=== PATIENT | male | born 1955 | race Caucasian/White ===

== ENCOUNTER 2016-12-16 09:33 | Outpatient (CLI) | payer MEDICARE ==
--- NOTE | 2016-12-16 14:34 | CT ---
CT CHEST WITH IV CONTRAST: CT ABDOMEN AND PELVIS WITH IV AND ORAL CONTRAST: HISTORY: Abdominal pain. Decreased appetite. Chest pain. COMPARISON: 10/07/2015 FINDINGS: A small amount of left pleural fluid remains with atelectasis at the left lung base having increased since the prior study. Minimal right pleural fluid is also present. Focal areas of parenchymal opacity at the left lateral lung base and left anterior lung base are fav ored to represent atelectasis. There is prominent calcification throughout the arterial structures. Right upper extremity and superior vena cava stents are partially visualized. Heterogeneous density of the liver is favored to represent vascular timing of contrast. Calcified g ranulomata within the spleen are consistent with healed granulomatous disease. The cortex of each k idney is atrophied. There are degenerative changes of the lumbar spine. The urinary bladder is inc ompletely distended. Left-sided inferior vena cava is present, crossing the midline at the level of the left renal vein. There is no evidence of bowel obstruction. The urinary bladder is incomplete ly distended. Bilateral pars interarticularis defects are present at the lumbosacral junction, with grade 2 spondy lolisthesis on the lateral topogram. IMPRESSION: 1. Small bilateral pleural effusions. Cause is not evident. 2. Atherosclerosis. 3. Bilateral renal atrophy. 4. Bilateral spondylolysis with spondylolisthesis at the lumbosacral junction. POS: [facility]
[2016-12-16] MEDS ORDERED: Iopamidol 370 76% 100 ML VIAL ONE (16:00)
== END 2016-12-16 09:34 | disposition home or self-care (01) ==
LOC: CT 09:33
PROVIDERS: ATTEND Internal Medicine Nephrology
DX: R05 Cough (principal); R63.0 Anorexia; R63.5 Abnormal weight gain; J90 Pleural effusion, not elsewhere classified; I70.0 Atherosclerosis of aorta; N26.1 Atrophy of kidney (terminal); M47.896 Other spondylosis, lumbar region
CPT/HCPCS: 71260; 74177

== ENCOUNTER 2017-01-18 16:05 | Inpatient (IN) | payer MEDICARE ==
[2017-01-18 17:06] LABS: #Eosinphils 0.2 thou/uL (0.0-0.7); #Lymphocytes 0.7 thou/uL (1.20-3.40); #Monocytes 0.8 thou/uL (0.11-0.59); #Neutrophils 6.6 thou/uL (1.40-6.50); %Basophils 0.3 % (0.0-1.0); %Eosinophils 2.5 % (0.0-10.0); %Lymphocytes 8.9 % (21.0-51.0); Hematocrit 36.5 % (42.0-52.0); Red Blood Cell (RBC) Count 3.63 mill/uL (4.70-6.10); White Blood Cell (WBC) Count 8.3 thou/uL (4.8-10.8)
--- NOTE | 2017-01-18 17:07 | RAD ---
FRONTAL RADIOGRAPH CHEST Date: 01-18-17 Comparison: 06-01-16 History: Cough, shortness of breath. FINDINGS: Vascular stent material overlies the right axillary region and the region of the superior vena cava. There is atherosclerotic calcification in the aortic arch. Midline sternotomy wires are present. Ther e is mild blunting of the right costophrenic angle which may signify small volume right pleural fluid and/or pleural thickening. There is dense opacity in the left lung base with obscuration of the left hemidiaphragm and blunting of the left heart border with lateral pleural thickening involving the left lung base. This nonspecif ic pleural and parenchymal opacity within the left lung base has worsened since the prior exam. There is a pneumothorax on the left, within the left lung apex, the pleural margin projecting over th e region of the clavicular heads. IMPRESSION: 1. Small pneumothorax in the left lung apex. 2. Nonspecific pleural and parenchymal opacity within the left lung base. This could signify volume l oss associated with pleural fluid, infectious pneumonitis, and/or aspiration. 3. The left sided pneumothorax and left basilar pleural and parenchymal opacity related to Betsy whipple in the Emergency Room 4:40 p.m. 01-18-17. Code CR POS: [facility]
[2017-01-18 17:30] LABS: ALT (SGPT) 11 U/L (8-55); AST (SGOT) 13 U/L (5-34); Alkaline Phosphatase 130 U/L (40-150); Anion Gap 13 mmol/L (10-20); BUN (Urea Nitrogen) 39 mg/dL (8.4-25.7); Bilirubin, Total 0.8 mg/dL (0.2-1.2); CK (CPK) 37 U/L (30-200); Calc. Creatinine Clearance 0 mL/min (70-130); Calcium 9.9 mg/dL (7.8-10.44); Carbon Dioxide 32 mmol/L (23-31); Chloride 99 mmol/L (98-107); Estimated GFR-MDRD 13; Protein, Total 8.3 g/dL (5.8-8.1)
[2017-01-18 17:34] LABS: Troponin I 0.064 ng/mL (< 0.028)
[2017-01-18 22:13] LABS: Troponin I 0.056 ng/mL (< 0.028)
[2017-01-19 00:14] LABS: Oxyhemoglobin 95.9 % (94.0-97.0); Sodium 140 mmol/L (135-148)
[2017-01-19 00:16] LABS: Modified Allen's Test POSITIVE; Vent NO
[2017-01-19 00:17] LABS: Mode NASAL CANNULA
[2017-01-19] MEDS ORDERED: Acetaminophen/Codeine 30-300mg Tablet ONE (00:28)
[2017-01-19 01:08] LABS: PTT 48.5 SEC (22.9-36.1); Prothrombin Time 30.1 SEC (12.0-14.7)
[2017-01-19] MEDS ORDERED: Guaifenesin DM 100-10/5 ML UDCUP PO PRN (02:05)
[2017-01-19] MEDS ORDERED: HumaLOG 300 UNITS/3 ML VIAL SC PRN (02:05)
[2017-01-19] MEDS ORDERED: Dextrose 5% in Water 1,000 ML IV PRN (02:05)
[2017-01-19] MEDS ORDERED: Dextrose 50% Abboject 50 ML SYRINGE SLOW IVP PRN (02:05)
[2017-01-19] MEDS ORDERED: Ondansetron ODT 4 MG TAB PO PRN (02:05)
[2017-01-19 02:24] LABS: #Basophils 0.1 thou/uL (0.0-0.2); #Eosinphils 0.3 thou/uL (0.0-0.7); #Monocytes 0.8 thou/uL (0.11-0.59); #Neutrophils 6.4 thou/uL (1.40-6.50); %Basophils 0.7 % (0.0-1.0); %Lymphocytes 11.8 % (21.0-51.0); %Monocytes 9.6 % (0.0-10.0); Hematocrit 32.6 % (42.0-52.0); Mean Platelet Volume 6.1 fL (7.4-10.4); Red Blood Cell (RBC) Count 3.22 mill/uL (4.70-6.10); White Blood Cell (WBC) Count 8.5 thou/uL (4.8-10.8)
[2017-01-19] MEDS ORDERED: hydrOXYzine 25 MG TAB PO PRN (02:36)
[2017-01-19 02:41] VITALS: BMI 24.0
[2017-01-19 02:48] LABS: Troponin I 0.066 ng/mL (< 0.028)
[2017-01-19 02:53] LABS: Anion Gap 15 mmol/L (10-20); BUN (Urea Nitrogen) 51 mg/dL (8.4-25.7); Calc. Creatinine Clearance 14 mL/min (70-130); Calcium 9.2 mg/dL (7.8-10.44); Carbon Dioxide 29 mmol/L (23-31); Chloride 101 mmol/L (98-107); Estimated GFR-MDRD 11
[2017-01-19 08:04] LABS: Troponin I 0.063 ng/mL (< 0.028)
--- NOTE | 2017-01-19 08:34 | HP-2 ---
DATE OF ADMISSION: 01/19/2017 ADMITTING RESIDENT: Dr. Harvey Márquez. ADMITTING ATTENDING: Dr. Edmond Dawson. PRIMARY CARE PHYSICIAN: [facility]. GENERAL EDUCATION PROFESSOR: Dr. Urrutia. CODE STATUS: FULL. CHIEF COMPLAINT: Shortness of breath and chest pain. HISTORY OF PRESENT ILLNESS: This is a 61-year-old male with shortness of breath and pain to the left side. This started at 3:00 a.m. this morning. Pain feels like rabies on place and it hurts sometim es with deep breaths. Does not hurt with movement or palpation. Does not feel like other times that he has had cardiac pain. Now associated with sweating or exertion, it has not relieved with rest. He has not tried any medications for it. No fever or chills. He has been coughing for months, but j ust clear phlegm. No green or foul smelling phlegm. Patient also complains of a chronic issue of 80 pound weight loss, has weights to follow over what ti me period this happened. He says he has never had an EGD study. PAST MEDICAL HISTORY: Tachybrady syndrome, atrial fibrillation, diabetes, end-stage renal disease on dialysis, hypertension, hyperlipidemia, anemia of chronic disease, secondary hyperparathyroidism and history of coronary artery disease. PAST SURGICAL HISTORY: Includes: 1. A 3-vessel CABG in 2015. 2. Stent placed in 2010. 3. Atrial ablation in 2017 in [place], [place]. 4. Knee surgery. MEDICATIONS: Patient is unsure of all medications, but confirms the following from his last discharg e: 1. Tramadol 50 mg p.o. q.6 hours p.r.n. 2. Fish oil 1000 mg 1 tablet p.o. daily. 3. Vitamin D3 of 2000 units 1 tablet p.o. daily. 4. Renvela 3200 mg p.o. t.i.d. with meals. 5. Sensipar 30 mg 2 tablets p.o. daily. 6. Atorvastatin 10 mg p.o. at bedtime. 7. Lisinopril 2.5 mg daily. 8. Metoprolol 50 mg p.o. b.i.d. 9. Warfarin 5 mg tablet, take 1.5 to 2 tablets every other day. SOCIAL HISTORY: Patient use chewing tobacco. He goes through 1 can every 2 days, but denies alcohol or recreational drug use. Denies ever smoking tobacco. REVIEW OF SYSTEMS: Twelve point review of systems was done and was negative except for what is detai led above. PHYSICAL EXAMINATION: VITAL SIGNS: T-max 98.1, respiratory rate 30, heart rate 92, blood pressure 156/109, O2 sat 96% on r oom air. GENERAL: Patient alert and oriented x3 in no acute distress. HEENT: EOMI, PERRLA, nonicteric. ENT: Showed normal nasal mucosa and oropharynx. CARDIOVASCULAR: The patient had regular rate and rhythm without murmurs or rubs. Pulses were equal. RESPIRATORY: Clear to auscultation bilaterally. Her breath sounds in all quadrants listing in the f ront and back of the chest. No crackles appreciated in the bases. The patient was mildly tachypneic during my examination. ABDOMEN: Nontender, nondistended. No guarding or rebound. EXTREMITIES: No edema. Equal movements bilaterally. SKIN: No rash or ulcer, no palpable lesions. NEUROLOGIC: Cranial nerve exam normal. No focal deficits. PSYCHIATRIC: Mood and affect are appropriate. Judgment and insight are intact. LABORATORY DATA: White blood cell count 8.3, hemoglobin 11.5, hematocrit 36.5, platelets 274. Sodiu m 140, potassium 4.3, chloride 99, bicarbonate 32, BUN 39, creatinine 4.56, glucose 99, calcium 9.6, total protein 8.2, albumin 4.3, bilirubin 0.8, AST 13, ALT 11, alkaline phosphatase 130. Initial tro ponin 0.064. EKG showed normal sinus rhythm with right bundle branch block same from previous. Ches t x-ray showed a small left apical pneumothorax and opacity in the left lung base, likely atelectasis , but with chest x-ray, cannot rule out pneumonia. ASSESSMENT AND PLAN: 1. Left apical pneumothorax. The patient is hemodynamically stable. This was a spontaneous pneumot horax, likely from the patient's chronic cough, will workup chronic cough as below. Our plan is to m onitor on a telemetry bed and will consult CT surgery if patient worsens, but likely this will resolv e on its own, but does need inpatient monitoring. We will get a CT with contrast in the morning befo re dialysis, to better evaluate his chronic cough and the pneumothorax. 2. End-stage renal disease on hemodialysis. Consult Dr. Urrutia for continued dialysis in the hospit al. The patient does not appear fluid overloaded and has normal electrolytes at this moment. 3. Atrial fibrillation. The patient is status post ablation, was in sinus rhythm now. We will cont inue patient's warfarin on home regimen. 4. Anemia of chronic disease. We will monitor appears stable from previous admissions. 5. Elevated bicarbonate likely from a respiratory acidosis or metabolic alkalosis. We will get an A BG and investigate causes based on ABG. 6. Chronic cough for 1 month. We will hold lisinopril as this is possible cause based on length of time, lack of fever and chills, lack of white count and lack of productive cough. Pneumonia is low l ikelihood clinically, but will monitor for any of these signs to occur. 7. Deep thrombosis prophylaxis, SCDs. The patient will continue warfarin. 8. Patient reported weight loss with early satiety and recommend EGD outpatient.
--- NOTE | 2017-01-19 09:26 | PDOC.FM ---
- Subjective Subjective: CC: Improved chest pain HPI: states his chest pain has nearly resolved. States he has early satiety due to the smell of food and denies difficulty swallowing. - Objective MAR Reviewed: Yes Vital Signs & Weight: Vital Signs (12 hours) Temp Pulse Resp BP Pulse Ox 01/19/17 08:00 97.6 F 92 16 134/77 93 L 01/19/17 03:12 98.0 F 84 24 H 129/65 93 L I&O: 01/18/17 01/19/17 01/20/17 06:59 06:59 06:59 Intake Total 300 Balance 300 Result Diagrams: 01/19/17 02:14 01/19/17 02:14 EKG Reviewed by me: Yes (SR PVCs rate 90s wandering atrial pacemaker. ) <Chris Castillo - Last Filed: 01/19/17 10:53> - Objective Vital Signs & Weight: Vital Signs (12 hours) Temp Pulse Resp BP Pulse Ox 01/19/17 11:05 98.1 F 91 16 135/66 92 L 01/19/17 08:00 97.6 F 92 16 134/77 93 L 01/19/17 03:12 98.0 F 84 24 H 129/65 93 L I&O: 01/18/17 01/19/17 01/20/17 06:59 06:59 06:59 Intake Total 300 Balance 300 Result Diagrams: 01/19/17 02:14 01/19/17 02:14 <Neville Bartlett - Last Filed: 01/19/17 13:54> Phys Exam - Physical Examination Constitutional: NAD HEENT: moist MMs, sclera anicteric Respiratory: no wheezing, no rales, no rhonchi abscent breath sounds REGLA Cardiovascular: RRR, no significant murmur Musculoskeletal: no edema, pulses present Neurological: non-focal, moves all 4 limbs Psychiatric: normal affect, A&O x 3 <Chris Castillo - Last Filed: 01/19/17 10:53> Dx/Plan (1) Pneumothorax Code(s): J93.9 - PNEUMOTHORAX, UNSPECIFIED Status: Acute QualifierTitle: Pneumothorax type: spontaneous, primary Qualified Code(s) : J93.11 - Primary spontaneous pneumothorax Plan: Confirmed on XR - will monitor with repeat XR tomorrow to view progression. (2) Chronic cough Code(s): R05 - COUGH Status: Acute Plan: CT scan with contrast of chest ordered to further evaluate. will have to coordinate with HD. (3) ESRD (end stage renal disease) on dialysis Code(s): N18.6 - END STAGE RENAL DISEASE; Z99.2 - DEPENDENCE ON RENAL DIALYSIS Status: Chronic Plan: Dr. Urrutia contacted. (4) Hypertension, benign Code(s): I10 - ESSENTIAL (PRIMARY) HYPERTENSION Status: Chronic Plan: stable (5) Weight loss, abnormal Code(s): R63.4 - ABNORMAL WEIGHT LOSS Status: Acute Plan: complains of early satiety and epigastric fullness. Reports 60 lb weight loss - will add CT abdomen and pelvis to tomorrow's study for evaluation since patient not reliable to follow up outpatient. <Chris Castillo - Last Filed: 01/19/17 10:53> Attending Addendum - Attending Addendum I personally evaluated the patient and discussed the management with Dr. Castillo. I agree with the History, Examination, Assessment and Plan documented above with any addition or exceptions noted below. early satiety, food avulsion and 60lb weight loss is concerning for GI neoplasm. Epigastric and RUQ tenderness noted on exam. Will arrange for CT of belly as well as chest tomorrow in coordination of HD. <Neville Bartlett - Last Filed: 01/19/17 13:54>
[2017-01-19] MEDS: Metoprolol Tartrate 50 MG TAB PO SCH ×2 (10:55→19:48)
[2017-01-19] MEDS: Sod Chloride/Lan/MO/Peet,Wh (Lubriderm) Lotion 180 ml Bottle TOP SCH ×3 (13:13→19:49)
[2017-01-19] MEDS: Acetaminophen 325 MG TAB PO PRN ×2 (13:13→19:47)
[2017-01-19] MEDS: Benzonatate 100 MG CAP PO PRN (16:38)
[2017-01-19] MEDS ORDERED: Warfarin Sodium 5 MG TAB PO SCH (17:00)
[2017-01-19] MEDS ORDERED: Atorvastatin Calcium 20 MG TAB PO SCH (21:00)
[2017-01-20] MEDS: Acetaminophen 325 MG TAB PO PRN (03:29)
[2017-01-20 06:37] LABS: Hematocrit 38.5 % (42.0-52.0); Prothrombin Time 30.9 SEC (12.0-14.7)
--- NOTE | 2017-01-20 07:59 | EKG ---
Test Reason : STAT Blood Pressure : / mmHG Vent. Rate : 088 BPM Atrial Rate : 088 BPM P-R Int : 138 ms QRS Dur : 138 ms QT Int : 430 ms P-R-T Axes : 068 -17 015 degrees QTc Int : 520 ms Sinus rhythm with occasional , and consecutive Premature ventricular complexes Right bundle branch block Abnormal ECG When compared with ECG of 18-JAN-2017 16:14, (Unconfirmed) Premature ventricular complexes are now Present Confirmed by CHA VICKERS ([id number]) on 01/20/2017 7:58:35 AM Referred By: Confirmed By:CHA VICKERS
[2017-01-20] MEDS: Benzonatate 100 MG CAP PO PRN (09:37)
[2017-01-20] MEDS: Sod Chloride/Lan/MO/Peet,Wh (Lubriderm) Lotion 180 ml Bottle TOP SCH (09:37)
[2017-01-20] MEDS: Metoprolol Tartrate 50 MG TAB PO SCH (09:37)
--- NOTE | 2017-01-20 09:54 | CT ---
CONTRAST ENHANCED CT OF THE CHEST CONTRAST ENHANCED CT OF THE ABDOMEN AND PELVIS: History: 61-year-old male with history of productive cough, chest pain, left lower quadrant abdominal pain. Technique: Contrast enhanced CT images of the chest, abdomen, and pelvis obtained after administratio n of IV and oral contrast. Comparison: 12-16-16 FINDINGS: Again, coronary artery calcifications are seen. Bilateral pleural effusions are seen. There is a righ t upper extremity subclavian venous endovascular stent in place. The lung parenchyma demonstrates no significant evidence of masses. There appears to be a loculated small pneumothorax just medial to the left upper lobe, not present on the previous comparison CT. No significant evidence of mediastinal, hilar, or axillary lymphadenopathy seen. CT abdomen and pelvis demonstrates calcifications in the spleen. The liver is unremarkable. Bilateral renal parenchymal calcifications and atrophy is seen. There is a left sided inferior vena cava dista l to the renal veins. A small amount of fluid is seen in the right lower quadrant of the abdomen which was not present on t he previous exam. In addition, abnormal small bowel dilatation has developed in the distal small negin l. IMPRESSION: 1. Developed small amount of free pelvic fluid. 2. Dilated developed loops of distal small bowel. 3. Increasing bilateral pleural effusions. 4. Coronary artery calcifications. 5. Loculated left upper medial small pneumothorax. POS: [facility]
--- NOTE | 2017-01-20 09:54 | RAD ---
PA AND LATERAL VIEWS CHEST: HISTORY: Pneumothorax followup. FINDINGS: Comparison is made with the exam of 01/18/17. Small left apical pneumothorax is stable. Changes of median sternotomy are again seen. The heart size is stable. There are pleural and parenc hymal changes of the left lung base. There is mild pulmonary vascular congestion. Right-sided vascu lar stents are again noted. IMPRESSION: Stable small left apical pneumothorax. POS: [facility]
--- NOTE | 2017-01-20 10:07 | PDOC.FM ---
- Subjective Subjective: CC: Feeling better HPI: States his breathing has improved. Was completing oral contrast at time of exam. No other concerns. resting comfortably in bed. - Objective MAR Reviewed: Yes Vital Signs & Weight: Vital Signs (12 hours) Temp Pulse Resp BP Pulse Ox 01/20/17 07:51 98.5 F 56 L 20 01/20/17 07:35 97.4 F L 64 20 122/65 96 01/20/17 03:29 98.5 F 56 L 20 115/56 L 97 01/19/17 23:14 97.4 F L 65 16 111/58 L 100 Weight Weight 71.532 kg I&O: 01/19/17 01/20/17 01/21/17 06:59 06:59 06:59 Intake Total 300 560 250 Balance 300 560 250 Result Diagrams: 01/20/17 05:53 01/19/17 02:14 EKG Reviewed by me: Yes (SR 50s ) <Chris Castillo - Last Filed: 01/20/17 10:05> - Objective Vital Signs & Weight: Vital Signs (12 hours) Temp Pulse Resp BP Pulse Ox 01/20/17 11:20 97.3 F L 72 16 126/68 95 01/20/17 07:51 98.5 F 56 L 20 01/20/17 07:35 97.4 F L 64 20 122/65 96 Weight Weight 71.532 kg I&O: 01/19/17 01/20/17 01/21/17 06:59 06:59 06:59 Intake Total 300 560 500 Balance 300 560 500 Result Diagrams: 01/20/17 05:53 01/19/17 02:14 <Neville Bartlett - Last Filed: 01/20/17 17:15> Phys Exam - Physical Examination HEENT: moist MMs, sclera anicteric Respiratory: no wheezing, no rales, clear to auscultation bilateral improved air movement in REGLA Cardiovascular: RRR, no significant murmur Gastrointestinal: soft, non-tender Musculoskeletal: no edema Neurological: non-focal, moves all 4 limbs Psychiatric: normal affect, A&O x 3 <Chris Castillo - Last Filed: 01/20/17 10:05> Dx/Plan (1) Pneumothorax Code(s): J93.9 - PNEUMOTHORAX, UNSPECIFIED Status: Acute QualifierTitle: Pneumothorax type: spontaneous, primary Qualified Code(s) : J93.11 - Primary spontaneous pneumothorax Plan: Stable CXR. Small loculated Pneumothorax on CT. Plan for D/C following HD today. (2) Chronic cough Code(s): R05 - COUGH Status: Acute Plan: CT scan unremarkable except for Pneumothorax and pleural effusions. - likely due to viral URI. (3) ESRD (end stage renal disease) on dialysis Code(s): N18.6 - END STAGE RENAL DISEASE; Z99.2 - DEPENDENCE ON RENAL DIALYSIS Status: Chronic Plan: Dr. Urrutia contacted. - Receiving HD today then plan for D/C. (4) Hypertension, benign Code(s): I10 - ESSENTIAL (PRIMARY) HYPERTENSION Status: Chronic Plan: stable (5) Weight loss, abnormal Code(s): R63.4 - ABNORMAL WEIGHT LOSS Status: Acute Plan: complains of early satiety and epigastric fullness. Reports 60 lb weight loss -CT abdomen and pelvis shows no mass. <Chris Castillo - Last Filed: 01/20/17 10:05> Attending Addendum - Attending Addendum I personally evaluated the patient and discussed the management with Dr. Castillo. I agree with the History, Examination, Assessment and Plan documented above with any addition or exceptions noted below. Patient is doing well. CT scan of chest abd and pelvis are unremarkable except fro stable pneumothorax. Vitals are stable. Possible Discharge. <Neville Bartlett - Last Filed: 01/20/17 17:15>
[2017-01-20] MEDS ORDERED: traMADol HCl 50 MG TAB PO SCH (12:00)
[2017-01-20 12:18] VITALS: BP 126/68; TEMP 97.3
--- NOTE | 2017-01-21 06:28 | DIS-2 ---
DATE OF ADMISSION: 01/19/2017 DATE OF DISCHARGE: 01/20/2017 ADMITTING ATTENDING: Edmond Dawson MD DISCHARGE ATTENDING: Neville Bartlett MD ADMITTING RESIDENT: Harvey Márquez MD DISCHARGE RESIDENT: Chris Castillo MD CONSULTATIONS: None. PROCEDURES: 1. Routine hemodialysis on 01/20/2017. 2. Chest x-ray on 01/18/2017 showed small pneumothorax in the left lung apex, nonspecific pleural pa renchymal opacity within left lung base. 3. Chest x-ray on 01/20/2017, stable left apical pneumothorax. 4. CT of chest, abdomen, and pelvis, small amount of free-pelvic fluid, dilated developed loops of d istal small bowel, increasing bilateral pleural effusions, coronary artery calcifications, loculated left upper mediastinal, small pneumothorax. PERTINENT LABORATORY FINDINGS: None. PRIMARY DIAGNOSES: 1. Small spontaneous left pneumothorax. 2. Interval worsening of pleural effusions. SECONDARY DIAGNOSES: 1. Chronic cough. 2. End-stage renal disease, on hemodialysis. 3. Hypertension. 4. Unprovoked weight loss. DISCHARGE MEDICATIONS: 1. Tessalon 100 mg t.i.d. p.r.n. 2. Guaifenesin 15 mL q.4 hours p.r.n. 3. Lubriderm lotion 3 mL b.i.d. 4. Tramadol 50 mg daily, prescribed 15 tabs. 5. Fish oil 1 tab daily. 6. Vitamin D3 one tab daily. 7. Renvela 3200 mg t.i.d. 8. Cinacalcet 2 tabs daily. 9. Lipitor 20 mg daily. 10. Lisinopril 2.5 mg daily. 11. Metoprolol 50 mg 2 times daily. 12. Coumadin 5 mg at bedtime. DISCONTINUED MEDICATIONS: None. HISTORY OF PRESENT ILLNESS AND HOSPITAL COURSE: Mr. Raygoza is a pleasant 61-year-old mal e who presented to the ER with chest pain that began at approximately 0300 hours on the date of admis melina. States, pain had not been relieved with rest and did not try any medication for pain relief. Denies fever or chills. Endorses a cough for approximately 1 month, but denied increased sputum prod uction. The patient also reported 80-pound weight loss over the past several months. Stated, he had not been evaluated outpatient. On routine chest x-ray, a small left apical pneumothorax was discove red and the patient was admitted for observation. His vital signs were stable at all times. He show ed no signs of tension pneumothorax. Repeat chest x-ray on day of discharge showed stable pneumothor ax. He also had a CT of the chest, abdomen, and pelvis to evaluate for malignancy. When compared to CT scan on 12/16/2016, study showed new pneumothorax that has been identified on chest x-ray, worsen ing bilateral pleural effusions, and a small amount of free fluid in the pelvis. There was no sign o f malignancy identified. The CT scan was coordinated with his hemodialysis since IV contrast was uti lized. The patient receives hemodialysis on the afternoon of discharge and was sent home in stable c ondition. Vital signs at the time of discharge were stable. DISPOSITION: Discharged home in stable condition. This current pneumothorax will likely resolve spo ntaneously and is most likely secondary to his chronic cough that is believed to be caused by a viral upper respiratory infection. DISCHARGE INSTRUCTIONS: 1. Location: Home. 2. Diet: Coumadin, prudent, renal. 3. Activity: As tolerated. 4. Patient was instructed to follow up at [facility] within 1 week of discharge for repeat chest x-ray to monitor a progression of his pneumothorax. The clinical patient care provider at the [facility] was contacted to make the arrangements with the patient. 5. Less than 30 minutes was spent on discharge.
== END 2017-01-20 18:11 | disposition home or self-care (01) | DRG 199 ==
LOC: ERS 16:05 → 2SW 01-19 02:10
PROVIDERS: ADMIT Family Medicine; ATTEND Family Medicine
PROC: 5A1D70Z Performance of Urinary Filtration, Intermittent, Less than 6 Hours Per Day (ICD-10-PCS; principal; 2017-01-20)
DX: J93.11 Primary spontaneous pneumothorax (principal); N18.6 End stage renal disease; E11.22 Type 2 diabetes mellitus with diabetic chronic kidney disease; I12.0 Hypertensive chronic kidney disease with stage 5 chronic kidney disease or end stage renal disease; J90 Pleural effusion, not elsewhere classified; I48.0 Paroxysmal atrial fibrillation; N25.81 Secondary hyperparathyroidism of renal origin; J06.9 Acute upper respiratory infection, unspecified; R05 Cough; E87.8 Other disorders of electrolyte and fluid balance, not elsewhere classified; Z99.2 Dependence on renal dialysis; R63.4 Abnormal weight loss; D63.8 Anemia in other chronic diseases classified elsewhere; R68.81 Early satiety; Z68.24 Body mass index [BMI] 24.0-24.9, adult; E78.5 Hyperlipidemia, unspecified; I25.10 Atherosclerotic heart disease of native coronary artery without angina pectoris; Z95.1 Presence of aortocoronary bypass graft; Z95.5 Presence of coronary angioplasty implant and graft; F17.220 Nicotine dependence, chewing tobacco, uncomplicated; Z79.01 Long term (current) use of anticoagulants
CPT/HCPCS: 36415; 36416; 71010; 71020; 71260; 74177; 80048; 80053; 82553; 82805; 84484; 85014; 85018; 85025; 85049; 85610; 85730; 87340; 93005; 93010; 99406

== ENCOUNTER 2017-01-25 11:05 | Inpatient (IN) | payer MEDICARE ==
[2017-01-25 12:11] LABS: ALT (SGPT) 752 U/L (8-55); AST (SGOT) 592 U/L (5-34); Alkaline Phosphatase 196 U/L (40-150); Anion Gap 25 mmol/L (10-20); BUN (Urea Nitrogen) 96 mg/dL (8.4-25.7); Bilirubin, Total 1.3 mg/dL (0.2-1.2); Calc. Creatinine Clearance 0 mL/min (70-130); Calcium 9.1 mg/dL (7.8-10.44); Carbon Dioxide 22 mmol/L (23-31); Chloride 96 mmol/L (98-107); Estimated GFR-MDRD 6; Globulin 4.1 g/dL (2.4-3.5)
[2017-01-25 12:18] LABS: Band 3 % (5-11); Hematocrit 44.7 % (42.0-52.0); Mean Platelet Volume 7.6 fL (7.4-10.4); Neutrophil 75 % (42-75); White Blood Cell (WBC) Count 18.2 thou/uL (4.8-10.8)
[2017-01-25 13:04] LABS: Lactic Acid - Sepsis 5.1 mmol/L (0.5-2.2)
[2017-01-25 13:06] LABS: CK (CPK) 161 U/L (30-200); Lipase 27 U/L (8-78)
[2017-01-25 13:11] LABS: Troponin I 0.042 ng/mL (< 0.028)
--- NOTE | 2017-01-25 13:45 | RAD ---
PORTABLE UPRIGHT FRONTAL CHEST RADIOGRAPH: DATE: . COMPARISON: 01/18/17. HISTORY: A 61-year-old male who feels bad and does not want to attend a dialysis session. FINDINGS: The pneumothorax present on the 01/18/17 examination on the left has resolved. No pneumothorax is see n on either side. Vascular stent material overlies the right lung base in the right axillary region, stable. Stable midline sternotomy wires are present. There is dense pleural and parenchymal opacity within the left lung base, nonspecific and grossly unc hanged when compared to 01/18/17 exam. The right lung appears grossly unremarkable and stable. IMPRESSION: Dense nonspecific pleural and parenchymal opacity persists within the left lung base. The left-sided pneumothorax present on the prior examination has resolved. POS: [facility]
[2017-01-25] MEDS ORDERED: Guaifenesin DM 100-10/5 ML UDCUP PO PRN (18:40)
[2017-01-25] MEDS ORDERED: HumaLOG 300 UNITS/3 ML VIAL SC PRN (18:40)
[2017-01-25] MEDS ORDERED: Dextrose 5% in Water 1,000 ML IV PRN (18:40)
[2017-01-25] MEDS ORDERED: Benzonatate 100 MG CAP PO PRN (18:40)
[2017-01-25] MEDS ORDERED: Dextrose 50% Abboject 50 ML SYRINGE SLOW IVP PRN (18:40)
[2017-01-25] MEDS: traMADol HCl 50 MG TAB PO SCH (20:51)
[2017-01-25] MEDS: Hydrocerin (Eucerin) Cream 120 gm Jar TOP SCH (20:52)
[2017-01-25] MEDS: Metoprolol Tartrate 50 MG TAB PO SCH (20:52)
[2017-01-25 20:55] VITALS: BMI 22.4
[2017-01-25] MEDS ORDERED: Sod Chloride/Lan/MO/Peet,Wh (Lubriderm) Lotion 180 ml Bottle TOP SCH (21:00)
[2017-01-25] MEDS ORDERED: Atorvastatin Calcium 20 MG TAB PO SCH (21:00)
--- NOTE | 2017-01-25 21:22 | PDOC.EVN ---
Event Note - Event Note Event Note: Patient seen and examined while in dialysis. Case discussed with Dr. Bright and her H&P reviewed and repeated by me. Agree with A/P as documented. Patient is well known to our service with last admission last week for spontaneous pneumothorax. He presents today for generalized weakness and missed dialysis. Review of labs showed K of 7 but no EKG changes. VSS CV- normal s1/s2 Lungs- ctab Abd- soft, nt/nd, no hsm Ext- no c/c/e Labs reviewed. 1. Hyperkalemia 2. ESRD 3. Transaminitis- unknown cause. Differential is hepatic congestion, hepatitis , hepatocellular carcinoma. 4. Leukocytosis- no obvious source of infection 5. Systolic CHF, chronic- elevation of BNP (most likely secondary to missed dialysis) Emergent dialysis. trend electrolytes, LFTs, WBC count. Check hepatitis panel and RUQ u/s.
[2017-01-26 05:10] LABS: ALT (SGPT) 576 U/L (8-55); AST (SGOT) 342 U/L (5-34); Alkaline Phosphatase 163 U/L (40-150); Anion Gap 18 mmol/L (10-20); BUN (Urea Nitrogen) 46 mg/dL (8.4-25.7); Bilirubin, Total 1.1 mg/dL (0.2-1.2); Calc. Creatinine Clearance 13 mL/min (70-130); Calcium 8.3 mg/dL (7.8-10.44); Carbon Dioxide 27 mmol/L (23-31); Chloride 96 mmol/L (98-107); Estimated GFR-MDRD 10; Globulin 3.6 g/dL (2.4-3.5); Protein, Total 6.8 g/dL (5.8-8.1)
[2017-01-26 05:46] LABS: Anisocytosis SLIGHT = 6-15 cells (100X) (0-5/hpf); Band 3 % (5-11); Hematocrit 40.1 % (42.0-52.0); Mean Platelet Volume 7.2 fL (7.4-10.4); Neutrophil 86 % (42-75); Nucleated RBC 12 % (0); Polychromasia SLIGHT = 2-3 cells (100X) (0-2/hpf); Red Blood Cell (RBC) Count 3.99 mill/uL (4.70-6.10); White Blood Cell (WBC) Count 10.8 thou/uL (4.8-10.8)
--- NOTE | 2017-01-26 06:06 | HP-2 ---
CODE STATUS: FULL. PRIMARY CARE PHYSICIAN: [facility] ATTENDING PHYSICIAN: Adele Pyle MD RESIDENT: Fadumo Bright DO CHIEF COMPLAINT: Generalized weakness. HISTORY OF PRESENT ILLNESS: This is a 61-year-old male with past medical history of end-stage renal disease on hemodialysis, hypertension, coronary artery disease, who presents with generalized weakness for approximately 3 days. He was recently admitted to our service for a spontaneous pneumothorax which has since resolved. The patient also endorses an 80 pound weight loss over the last several months. Associated symptoms include nausea, vomiting, and early satiety. The patient has had nonbilious, nonbloody emesis on several occasions over the past 3 days. The patient attends dialysis Wednesday, Wednesday , and Wednesday, and states that he missed dialysis today due to weakness. He felt that he did not have energy to get off the couch. The patient denies fever , chills, diarrhea, constipation, abdominal pain, dysuria, new lesions. The patient does endorse a cough, which has become more productive of green sputum over the past several days. He also has some shortness of breath particularly with exertion. In the emergency department, patient was found to have a BNP greater than 10,000 and potassium of 7.0. Dr. Urrutia, his fashion patternmaker was consulted in the emergency department and he recommended emergent dialysis. An EKG was performed, at that time it did not show any T-wave changes. PAST MEDICAL HISTORY: 1. End-stage renal disease on hemodialysis. 2. Hypertension. 3. Hyperlipidemia. 4. Anemia of chronic disease. 5. Secondary hyperparathyroidism. 6. Coronary artery disease. 7. Tachybrady syndrome. 8. Atrial fibrillation. 9. Systolic congestive heart failure with an ejection fraction of 40% to 45% in 02/2016. 10. Diabetes mellitus type 2. PAST SURGICAL HISTORY: 1. Three-vessel CABG in 2015. 2. Stent in 2010. 3. Atrial ablation in 2016. 4. Knee surgery. ALLERGIES: PENICILLIN. MEDICATIONS: 1. Coumadin 5 mg at bedtime. 2. Metoprolol 50 mg b.i.d. 3. Lisinopril 2.5 mg daily. 4. Lipitor 20 mg daily. 5. Cinacalcet 2 tabs daily. 6. Renvela 3200 mg t.i.d. 7. Vitamin D3 daily. 8. Fish oil daily. 9. Tramadol 50 mg daily p.r.n. 10. Lubriderm lotion 3 mL b.i.d. 11. Guaifenesin 15 mL q.4 hours p.r.n. 12. Tessalon Perles 100 mg t.i.d. FAMILY HISTORY: Noncontributory. SOCIAL HISTORY: The patient endorses chewing tobacco one can every 2 days; however, in the past week he has only been through about a can. He denies any alcohol or drug use. REVIEW OF SYSTEMS: A 12-point review of systems was performed and all were negative except as listed in the HPI. PHYSICAL EXAMINATION: VITAL SIGNS: Blood pressure 125/92, pulse 48, respiratory rate 18, T-max 97.7, pulse ox 97% on room air, current weight 72.6 kilograms. GENERAL: Alert and oriented x3, in no acute distress. Well-developed, thin, and appropriately interactive. The patient did appear to be very fatigued and he was receiving his dialysis during interview. Eyes: Pupils equal, round, reactive to light and accommodation. Extraocular muscles are intact. ENT: Nasal mucosa within normal limits. NECK: Supple, without any lymphadenopathy or thyromegaly. CARDIOVASCULAR: The patient was bradycardic. No murmurs were detected. No gallops. Radial and pedal pulses 2+. RESPIRATORY: Normal respiratory effort, no retractions. There were some rhonchi anteriorly on the right side and decreased breath sounds anteriorly on the left side. SKIN: Warm and dry without cyanosis or lesions. ABDOMEN: Soft, nontender to palpation. Bowel sounds positive in all 4 quadrants. EXTREMITIES: No clubbing, cyanosis, or edema. MUSCULOSKELETAL: Structure within normal limits. NEUROLOGIC: No focal deficits. GCS 15. PSYCHIATRIC: Appropriate. LABORATORY AND DIAGNOSTIC DATA: 1. CBC revealed white blood cell count 18.2, hemoglobin 14.3, hematocrit 44.7, platelets 165. 2. CMP revealed sodium 136, potassium 7.0, chloride 96, bicarbonate 22, BUN 96 , creatinine 9.05, glucose 76, calcium 9.1, total protein 8.0, albumin 3.9, total bilirubin 0.3, AST 592, ALT 752, and alkaline phosphatase 196. 3. CK 161. 4. CK-MB 3.1, troponin 0.042. 5. Lipase 27. 6. BNP 10,093. 7. Flu A and B negative. 8. Chest x-ray showed dense nonspecific pleural and parenchymal opacity persistent left lung base. ASSESSMENT AND PLAN: This is a 61-year-old male with a past medical history of end-stage renal disease on hemodialysis who presented with generalized weakness for the past 3 days. 1. Severe hyperkalemia. Patient was admitted to telemetry. Dr. Urrutia was consulted in the emergency department and patient was sent for emergent dialysis. Dr. Urrutia, the patient's fashion patternmaker ordered for repeat potassium. EKG was normal with no peaked T waves. 2. Hypervolemia secondary to end-stage renal disease. Dr. Urrutia, patient's fashion patternmaker was consulted in the emergency department. The patient went for emergent dialysis. Patient will be started on high protein, renal diet, as well as consistent carb diet. Fluids are being monitored and patient will have daily weights. Continue MWF dialysis. 3. Elevated LFT's. LFT's higher than in the past. Differentials include hepatic congestion vs. HCC. vs. hepatitis. RUQ ultrasound to evaluate liver. Trend liver enzymes. 4. Systolic congestive heart failure with ejection fraction of 40% to 45%. The patient was placed on fluid restriction. Obtain daily weights. We will repeat BNP in the morning and perform strict I's and O's to monitor fluid status. Last echo was done in 02/2016. 5. Hypertension. Continue home medications. 6. Atrial fibrillation, currently in sinus rhythm. Continue rate control medications and Coumadin. 7. Diabetes mellitus type 2. The patient was placed on moderate sliding scale insulin with hypoglycemia protocol. DISPOSITION AND LENGTH OF HOSPITAL STAY: Two days. Symptomatic medication will be provided. History and physical as well as management discussed with Dr. Adele Pyle. [facility]ENTER[facility]
--- NOTE | 2017-01-26 06:22 | PDOC.FM ---
- Subjective Subjective: Patient doing well this AM. No significant overnight events. Upon entering the room this AM, patient was attempting to order breakfast. His appetite has returned. He denies N/V, diarrhea, chest pain or shortness of breath. His weakness has improved. - Objective MAR Reviewed: Yes Vital Signs & Weight: Vital Signs (12 hours) Temp Pulse Resp BP BP BP Pulse Ox 01/26/17 02:56 98.2 F 52 L 16 101/58 L 94 L 01/26/17 00:36 50 L 102/52 L 01/26/17 00:08 97.3 F L 47 L 20 89/57 L 95 01/25/17 21:15 97.7 F 64 19 01/25/17 19:19 97.7 F 64 19 155/72 H 100 01/25/17 18:45 97.5 F L 66 16 164/78 H 100 Weight Weight 68.719 kg Result Diagrams: 01/26/17 04:23 01/26/17 04:23 EKG Reviewed by me: Yes Radiology Reviewed by me: Yes Phys Exam - Physical Examination Constitutional: NAD HEENT: moist MMs, sclera anicteric Neck: supple Respiratory: no wheezing, no rales, no rhonchi Decreased breath sounds on left anterior chest compared to right Cardiovascular: RRR systolic murmur Gastrointestinal: soft, non-tender, no distention, positive bowel sounds Musculoskeletal: no edema, pulses present Neurological: non-focal, moves all 4 limbs Psychiatric: normal affect, A&O x 3 Skin: no rash, cap refill <2 seconds Dx/Plan (1) Hyperkalemia Code(s): E87.5 - HYPERKALEMIA Status: Acute (2) ESRD (end stage renal disease) on dialysis Code(s): N18.6 - END STAGE RENAL DISEASE; Z99.2 - DEPENDENCE ON RENAL DIALYSIS Status: Chronic (3) Elevated LFTs Code(s): R94.5 - ABNORMAL RESULTS OF LIVER FUNCTION STUDIES Status: Acute (4) Systolic CHF Code(s): I50.20 - UNSPECIFIED SYSTOLIC (CONGESTIVE) HEART FAILURE Status: Chronic Qualifiers: Congestive heart failure chronicity: chronic Qualified Code(s): I50.22 - Chronic systolic (congestive) heart failure (5) Hyperlipidemia Code(s): E78.5 - HYPERLIPIDEMIA, UNSPECIFIED Status: Chronic Qualifiers: Hyperlipidemia type: unspecified Qualified Code(s): E78.5 - Hyperlipidemia , unspecified (6) Sinus bradycardia on ECG Code(s): R00.1 - BRADYCARDIA, UNSPECIFIED Status: Acute (7) Weight loss, abnormal Code(s): R63.4 - ABNORMAL WEIGHT LOSS Status: Acute (8) Anemia of renal disease Code(s): D63.1 - ANEMIA IN CHRONIC KIDNEY DISEASE Status: Chronic (9) Diabetes mellitus Code(s): E11.9 - TYPE 2 DIABETES MELLITUS WITHOUT COMPLICATIONS Status: Chronic Qualifiers: Diabetes mellitus type: type 2 Diabetes mellitus complication status: with kidney complications Diabetes mellitus complication detail: with chronic kidney disease Chronic kidney disease stage: on chronic dialysis (10) Hypertension, benign Code(s): I10 - ESSENTIAL (PRIMARY) HYPERTENSION Status: Chronic (11) Secondary hyperparathyroidism of renal origin Code(s): N25.81 - SECONDARY HYPERPARATHYROIDISM OF RENAL ORIGIN Status: Chronic - Plan Plan: Plan: Severe hyperkalemia: - Admitted to telemetry - Patient missed morning dialysis - EKG did not show any peaked T waves - Sent from ED to dialysis; emergent - Dr. Urrutia consulted (nephrology); appreciate recs - Recheck potassium post dialysis; 3.6 Hypervolemia 2/2 ESRD on HD: - Missed Wednesday morning dialysis session due to weakness - BNP >10,000 - K 7.0 - Sent for emergent dialysis - Dr. Urrutia consulted; appreciate recs - Continue dialysis MWF Elevated LFT's: - Higher than in the past - Differentials include hepatitis vs. HCC vs. hepatic congestion; most likely hepatic congestion - Read of RUQ U/S pending - Hepatitis A antibodies pending - Recent Hep B and Hep C panels; Hep C Ab's present with no RNA - LFT's downtrended from yesterday sCHF with EF of 40-45%: - BNP >10,000 - Last echo in 02/2016 - Fluid restrict - Daily weights - Strict I&O's Atrial fibrillation: - Rate controlled - In sinus rhythm - Continue coumadin DM type II: - Mild SSI - ACHS accuchecks ACD: - stable HTN: - Continue home meds - Continue MWF dialysis HLD: - Continue home meds
--- NOTE | 2017-01-26 08:08 | ULT ---
GALLBLADDER ULTRASOUND: History: Elevated LFTs. Unintentional weight loss. Comparison: None. Technique: Utilizing a multihertz transducer, sonographic imaging of the abdomen was performed in a l ongitudinal and transverse plane. FINDINGS: The head and proximal pancreatic body have a normal echotexture. The remainder of the pancreas is obs cured by bowel gas. Hepatic parenchyma has a normal echotexture. No hepatic masses or intrahepatic biliary dilatation. Co ntour of the hepatic margin maintained. Right hepatic lobe measures 15.1 cm. The main portal vein is patent with to and fro flow. There is no sonographic evidence of cholelithiasis, gallbladder wall thickening or pericholecystic fl uid. No Yanez's sign. There is atrophy of the right renal parenchyma. Multiple anechoic foci are compatible with cysts are noted. The largest cyst measures 2.1 x 2.1 x 1.8 cm. No hydronephrosis. Common bile duct diameter is 0.4 cm. IMPRESSION: 1. To and fro flow into the main portal vein, correlate for right heart failure. 2. No sonographic evidence of cholelithiasis or cholecystitis. 3. Atrophy and cystic change of the right kidney. No hydronephrosis. POS: [facility]
[2017-01-26] MEDS ORDERED: Fish Oil 1,000 MG CAP PO SCH (09:00)
[2017-01-26] MEDS ORDERED: Cinacalcet HCl 30 MG TAB PO SCH (09:00)
[2017-01-26] MEDS ORDERED: Lisinopril 2.5 MG TAB PO SCH (09:00)
[2017-01-26 10:19] LABS: Hemoglobin A1c 4.7 % (4.0-6.0)
[2017-01-26] MEDS: Sevelamer Carbonate 800 MG TAB PO SCH ×2 (10:48→13:02)
[2017-01-26] MEDS: Metoprolol Tartrate 50 MG TAB PO SCH (10:49)
[2017-01-26] MEDS: traMADol HCl 50 MG TAB PO SCH (10:50)
[2017-01-26] MEDS: Hydrocerin (Eucerin) Cream 120 gm Jar TOP SCH (10:51)
[2017-01-26 11:57] VITALS: TEMP 97.8
--- NOTE | 2017-01-26 13:31 | ADD-PRG ---
DATE OF SERVICE: 01/26/2017 This is an addendum to the note of Dr. Fadumo Bright. Mr. Raygoza is a 61-year-old white male patient who has end-stage renal disease. He was admitted wi th generalized weakness. Of note is the fact that according to him, he has lost approximately 70-80 pounds in the last 4 months. He states his appetite has been poor. He was just in the hospital last week and at that time had a CT of the chest, abdomen, and pelvis, none of which revealed any evidenc e of malignancy or other significant abnormality. He does seem to have a persistent scar or infiltr ate in the left lower lobe of his lung on chest x-ray, but this was not further delineated on CT of t he chest. In the event we can likely continue to work up for his weight loss as an outpatient. I wo uld suggest we go ahead and draw a PSA, TSH, sed rate, CRP, and complete evaluation as an outpatient.
[2017-01-26 15:09] VITALS: BP 109/58
[2017-01-26] MEDS ORDERED: Warfarin Sodium 5 MG TAB PO SCH (17:00)
[2017-01-27 08:21] LABS: % Free PSA 26.7 % (.); Free PSA 0.16 ng/mL; Total PSA 0.6 ng/mL (0.0-4.0)
--- NOTE | 2017-01-28 07:40 | DIS-2 ---
DATE OF ADMISSION: 01/25/2017 DATE OF DISCHARGE: 01/26/2017 RESIDENT: Dr. Fadumo Bright. ADMITTING ATTENDING: Dr. Adele Pyle. DISCHARGE ATTENDING: Dr. Romel Finnegan. CONSULTATION: Nephrology, Dr. Urrutia. PROCEDURES: 1. Chest x-ray, dense nonspecific pleural and parenchymal opacities that persist within the left lung base. The left-sided pneumothorax was present on prior examination has resolved. 2. Abdominal ultrasound shows to and fro flow into the main portal vein, which correlates with right heart failure. There is no sonographic evidence of cholelithiasis or cholecystitis. Atrophy and cystic changes, right kidney, without hydronephrosis. PRIMARY DIAGNOSES: 1. Hyperkalemia secondary to end-stage renal disease. 2. Hypervolemia secondary to end-stage renal disease. 3. End-stage renal disease on hemodialysis. 4. Elevated liver function tests. SECONDARY DIAGNOSES: 1. Systolic congestive heart failure. 2. Hyperlipidemia. 3. Sinus bradycardia. 4. Unexplained weight loss. 5. Anemia of renal disease. 6. Diabetes mellitus, type 2. 7. Hypertension. 8. Secondary hyperparathyroidism of renal origin. DISCHARGE MEDICATIONS: 1. Fish oil 1 tablet oral daily. 2. Vitamin D3 one tablet oral daily. 3. Renvela 3200 mg oral 3 times daily with meals. 4. Cinacalcet 2 tablets oral daily. 5. Atorvastatin 20 mg oral at bedtime. 6. Lisinopril 2.5 mg oral daily. 7. Metoprolol tartrate 50 mg oral twice daily. 8. Warfarin 5 mg oral at 1700. 9. Benzonatate 100 mg oral 3 times daily as needed. 10. Robitussin DM 15 mL oral every 4 hours as needed. 11. Lubriderm lotion 10 mL topical twice daily. 12. Ultram 50 mg oral twice daily. HISTORY OF PRESENT ILLNESS AND HOSPITAL COURSE: This is a 61-year-old male with past medical history of end-stage renal disease on hemodialysis, hypertension, coronary artery disease, who presented with generalized weakness for approximately 3 days. He was recently admitted to our service for spontaneous pneumothorax, which has since resolved. The patient also endorses an 80 pound weight loss over the last several months, which has been unprovoked. He admits to early satiety, nausea, vomiting, and decreased appetite. The patient has had nonbilious, nonbloody emesis on several occasions over the past 3 days. He attends dialysis Wednesday, Wednesday, and Wednesday, and states that he missed dialysis on the day of admission due to weakness. The patient denied fever, chills, diarrhea, constipation, abdominal pain, dysuria or any new lesions. He does endorse a cough, which has become more productive of green sputum over the past several days. He also has some shortness of breath, particularly with exertion. In the emergency department, the patient was found to have a BNP of greater than 10,000 and potassium of 7.0. Dr. Urrutia, his cash analyst was consulted in the emergency department and he recommended emergent dialysis. An EKG was performed at that time and it did not show any T-wave changes or EKG abnormalities. The patient remained stable throughout the course of his hospital stay. He went for emergent dialysis on the day of admission at which time 3 liters of fluid were removed. The patient's potassium stabilized and he did well on that. The next day, the patient did not have any nausea or vomiting and was able to tolerate p.o. intake. It was discussed with the patient that he would likely need more management as an outpatient to include a possible colonoscopy and endoscopy as well as more imaging to further evaluate this 80-pound unprovoked weight loss. The patient follows at [facility] and it was advised that he return to the clinic for a followup on hospital visit as well as to evaluate for other sources of weight loss. The patient's LFTs were noted to be elevated. This is likely secondary to hepatic congestion due to his fluid overload; however, an abdominal ultrasound was performed to evaluate the liver. There are no liver abnormalities or evidence of hepatocellular carcinoma on liver ultrasound. Liver enzymes did continue to trend down during his hospital stay. The patient was positive for hepatitis A antibodies which indicates he has been exposed to Hep A likely in the past. The patient was encouraged to continue with his dialysis sessions. He is to follow up with Dr. Urrutia as scheduled and he is to follow up with [facility] within 7 days of discharge from the hospital. DISPOSITION: Stable. DISCHARGE INSTRUCTIONS: 1. Location: Home. 2. Activity: As tolerated. 3. Diet: Heart healthy and diabetic diet. FOLLOWUP INSTRUCTIONS: The patient is to follow up with his primary care physicians at [facility] within the next 7 days. Additionally, he is to continue following with Dr. Urrutia, his cash analyst as scheduled. The patient does have an appointment with cardiac rehab on 02/09/2017. He is encouraged to keep this appointment for this management of his congestive heart failure. MICHELLE
== END 2017-01-26 15:18 | disposition home or self-care (01) | DRG 640 ==
LOC: ERS 11:05 → 2SE 13:30 → ERS 14:31
PROVIDERS: ADMIT Family Medicine; ATTEND Family Medicine
PROC: 5A1D70Z Performance of Urinary Filtration, Intermittent, Less than 6 Hours Per Day (ICD-10-PCS; principal; 2017-01-25)
DX: E87.5 Hyperkalemia (principal); N18.6 End stage renal disease; I13.2 Hypertensive heart and chronic kidney disease with heart failure and with stage 5 chronic kidney disease, or end stage renal disease; E11.22 Type 2 diabetes mellitus with diabetic chronic kidney disease; I49.5 Sick sinus syndrome; N25.81 Secondary hyperparathyroidism of renal origin; I50.22 Chronic systolic (congestive) heart failure; R53.1 Weakness; Z99.2 Dependence on renal dialysis; I25.10 Atherosclerotic heart disease of native coronary artery without angina pectoris; E78.5 Hyperlipidemia, unspecified; D63.1 Anemia in chronic kidney disease; I48.91 Unspecified atrial fibrillation; Z95.1 Presence of aortocoronary bypass graft; Z95.5 Presence of coronary angioplasty implant and graft; Z88.0 Allergy status to penicillin; Z79.01 Long term (current) use of anticoagulants; F17.220 Nicotine dependence, chewing tobacco, uncomplicated; E87.70 Fluid overload, unspecified; R91.8 Other nonspecific abnormal finding of lung field; Z91.15 Patient's noncompliance with renal dialysis
CPT/HCPCS: 36415; 36416; 71010; 76705; 80053; 82553; 83036; 83605; 83690; 83880; 84153; 84154; 84443; 84484; 85025; 85652; 86140; 86708; 87040; 90935; 93005; 93798; G0257

== ENCOUNTER 2017-05-12 13:18 | Outpatient (CLI) | payer MEDICARE ==
--- NOTE | 2017-05-12 15:33 | RAD ---
PA AND LATERAL OF THE CHEST 05/12/17 INDICATION: Evaluate pleural effusion. COMPARISON: Prior exam dated 03/09/17. FINDINGS: Moderate left pleural effusion is stable. Cardiomegaly persists. Chronic changes involving the right lung are similar appearing. Endovascular stent seen involving the venous structure of the right upper extremity is similar appearing. Sternotomy changes are similar. Chronic osseous changes are similar. IMPRESSION: Stable exam. POS: [facility]
== END 2017-05-12 13:19 | disposition home or self-care (01) ==
LOC: RAD 13:18
PROVIDERS: ATTEND Internal Medicine Nephrology
DX: J90 Pleural effusion, not elsewhere classified (principal)
CPT/HCPCS: 71046

== ENCOUNTER 2017-07-16 06:07 | Day surgery (SDC) | payer MEDICARE ==
[2017-07-15 13:42] VITALS: BMI 22.1
--- NOTE | 2017-07-16 10:34 | OP ---
DATE OF PROCEDURE: 07/16/2017 PROCEDURES PERFORMED: Esophagogastroduodenoscopy with biopsy, colonoscopy with polypectomy. INDICATION FOR PROCEDURE: Periumbilical abdominal pain, unintentional weight loss. DESCRIPTION OF PROCEDURE: After the risks and benefits of the procedures were explained to the patie nt including risk of bleeding, infection, perforation, reaction to anesthesia and/or pain, informed c onsent was obtained. The patient was then taken to the endoscopy suite where deep sedation was admin istered via propofol and anesthesia support. Once adequate sedation was achieved, a standard gastros cope was introduced into the mouth with intubation of the esophagus, stomach and the proximal small i ntestine with the findings listed below. Once that portion of the procedure was completed, all equip ment was removed with the patient then rotated 180 degrees on the gurney. After a digital rectal exa mination, the standard colonoscope was introduced into the rectum and advanced to the cecum with mode rate to severe difficulty due to significant tortuosity of the colon requiring external manual pressu re to facilitate passage of the scope. The quality of the prep was good with aggressive irrigation a nd suctioning. The patient tolerated the procedure well with no immediate perioperative complication s. EGD FINDINGS: ESOPHAGUS: Normal appearing mucosa was seen in the proximal, mid and distal esophagus. The diaphrag matic pinch was seen at 45 cm while the GE junction was well seen at 43 cm past the incisors denoting a 2 cm hiatal hernia. There was no evidence of erosions, ulcerations, mass lesions or active/recent bleeding. STOMACH: Normal appearing mucosa was seen in the gastric cardia, fundus, body and incisura. However , small patches of increased mucosal erythema as well as multiple small erosions with petechia like c lots overlying them were seen in the gastric antrum. With washing off the petechiae like clots, ther e was only small erosions underneath, but no overt ulceration. Random biopsies were taken for evalua tion of H. pylori status. There was no evidence of overt ulcerations, mass lesions or active/recent bleeding seen during this portion of the exam. DUODENUM: Normal appearing mucosa was seen in both the duodenal bulb and second portion of the duode num. There was no evidence of erosions, ulcerations, mass lesions or active/recent bleeding. IMPRESSION: 1. A 2 cm hiatal hernia. 2. Multiple antral erosions without overt ulceration seen consistent with either H. pylori versus NS AID gastritis. COLONOSCOPY FINDINGS: DIGITAL RECTAL EXAM: Normal external examination. COLON FINDINGS: There was normal appearing mucosa at the ileocecal valve and appendiceal orifice. H owever, 2 polyps measuring 5-6 mm in size and 10 mm in size were seen in the cecum. Both these polyp s were completely removed with snare cautery polypectomy and retrieved for specimen evaluation. Norm al mucosa was then seen in the ascending and transverse colon. A 4-5 mm polyp was seen in the descen ding colon and completely removed with snare cautery polypectomy it was retrieved and placed in a spe cimen jar for evaluation. An additional 3 mm polyp was seen in the sigmoid colon and completely vandana fox with cold snare polypectomy, it was retrieved and placed in a specimen jar for evaluation. Eleanor l appearing mucosa was seen in the rectum proper. Small internal hemorrhoids were seen on rectal ret roflexion. IMPRESSION: 1. Two polyps measuring 5-6 mm and 10 mm in size were seen in the cecum and completely removed with snare cautery polypectomy. 2. A 4-5 mm polyp was seen in the descending colon and completely removed with hot snare polypectomy . 3. A 3-mm sigmoid colon polyp removed with cold snare polypectomy. 4. Small internal hemorrhoids. 5. No etiology for abdominal pain was seen during this examination. RECOMMENDATIONS: 1. We will follow up on biopsy results. 2. Would recommend avoidance of all NSAIDs given evidence of erosive gastritis on upper endoscopy. 3. We will start patient on omeprazole 40 mg daily for gastritis. 4. Repeat colonoscopy depending on pathology results. 5. Would have the patient follow up within the GI Clinic in 3 weeks for reevaluation of his abdomina l pain.
[2017-07-16] MEDS ORDERED: Lidocaine 1% PF 5 ML VIAL ONE (13:41)
[2017-07-16] MEDS ORDERED: PROPOFOL 200 MG/20 ML VIAL ONE (13:41)
== END 2017-07-16 10:00 | disposition home or self-care (01) ==
LOC: SDC 06:07
PROVIDERS: ATTEND Internal Medicine
PROC: 0DB68ZX Excision of Stomach, Via Natural or Artificial Opening Endoscopic, Diagnostic (ICD-10-PCS; principal; 2017-07-16)
PROC: 0DBH8ZX Excision of Cecum, Via Natural or Artificial Opening Endoscopic, Diagnostic (ICD-10-PCS; 2017-07-16)
PROC: 0DBN8ZX Excision of Sigmoid Colon, Via Natural or Artificial Opening Endoscopic, Diagnostic (ICD-10-PCS; 2017-07-16)
PROC: 0DBM8ZX Excision of Descending Colon, Via Natural or Artificial Opening Endoscopic, Diagnostic (ICD-10-PCS; 2017-07-16)
DX: K51.40 Inflammatory polyps of colon without complications (principal); D12.4 Benign neoplasm of descending colon; D12.5 Benign neoplasm of sigmoid colon; K44.9 Diaphragmatic hernia without obstruction or gangrene; K25.9 Gastric ulcer, unspecified as acute or chronic, without hemorrhage or perforation; K64.8 Other hemorrhoids; F17.210 Nicotine dependence, cigarettes, uncomplicated; I12.9 Hypertensive chronic kidney disease with stage 1 through stage 4 chronic kidney disease, or unspecified chronic kidney disease; E11.22 Type 2 diabetes mellitus with diabetic chronic kidney disease; N18.9 Chronic kidney disease, unspecified; Z79.01 Long term (current) use of anticoagulants; Z79.82 Long term (current) use of aspirin; Z79.899 Other long term (current) drug therapy; Z95.5 Presence of coronary angioplasty implant and graft; Z88.0 Allergy status to penicillin; Z95.1 Presence of aortocoronary bypass graft
CPT/HCPCS: 88305; 88312; J2001; J2704

== ENCOUNTER 2017-08-24 07:12 | Inpatient (IN) | payer MEDICARE ==
[2017-08-24] MEDS ORDERED: Fentanyl 250 MCG/5 ML VIAL ONE (07:17)
[2017-08-24] MEDS ORDERED: Phenylephrine HCL 10 MG/ML VIAL ONE (07:17)
[2017-08-24] MEDS ORDERED: Bupivacaine HCl 0.5%/Epinephrine 1:200,000/PF 30 ml Vial ONE (07:37)
[2017-08-24 09:11] LABS: Hemoglobin 9.7 g/dL (14.0-18.0); Mean Corpuscular HGB CONC 31.3 g/dL (32.0-36.0); Mean Corpuscular Hemoglobin 31.2 pg (27.0-31.0); Mean Corpuscular Volume 99.7 fL (78.0-98.0); Mean Platelet Volume 6.3 fL (7.4-10.4); Platelet Count 188 thou/uL (130-400); RBC Distribution Width 13.2 % (11.5-14.5); Red Blood Cell (RBC) Count 3.11 mill/uL (4.70-6.10)
[2017-08-24 09:31] LABS: Anion Gap 14 mmol/L (10-20); BUN (Urea Nitrogen) 38 mg/dL (8.4-25.7); Calc. Creatinine Clearance 15 mL/min (70-130); Calcium 9.2 mg/dL (7.8-10.44); Carbon Dioxide 25 mmol/L (23-31); Chloride 104 mmol/L (98-107); Estimated GFR-MDRD 12; Glucose 86 mg/dL (80-115); Potassium 4.2 mmol/L (3.5-5.1); Sodium 139 mmol/L (136-145)
--- NOTE | 2017-08-24 09:56 | RAD ---
CHEST PA AND LATERAL: Date: 08/24/17 HISTORY: 62-year-old male for preoperative evaluation, recurrent left pleural effusion. COMPARISON: 08/19/17. FINDINGS: Postop midline sternotomy. Multiple right-sided vascular venous stents. Minimal cardiomegaly with per sistent but overall stable appearing left pleural change, as well as some minimal parenchymal changes in the mid and lower lung zones. Right chest is unremarkable. IMPRESSION: Stable left pleural and parenchymal opacity changes and minimal cardiomegaly and postop changes. No s ignificant new process. POS: [facility]
[2017-08-24 12:25] LABS: BF Color Red; Body Fluid Source PLEURAL FLUID; Clarity Cloudy/Turbid (Clear); Tube # EDTA
[2017-08-24 12:26] LABS: RBC Background Count 0.002; RBC Count-Automated 235000 /cumm; WBC/NonHematic-Auto 1580 /cumm
[2017-08-24 12:28] LABS: Fluid, Protein 3.3 g/dL (Not Available)
[2017-08-24] MEDS ORDERED: Ondansetron HCl/PF 4 MG/2 ML Vial ONE (12:37)
[2017-08-24] MEDS ORDERED: PROPOFOL 200 MG/20 ML VIAL ONE (12:37)
[2017-08-24] MEDS ORDERED: Glycopyrrolate 0.2 MG/ML 5 ML SYRINGE ONE (12:37)
[2017-08-24] MEDS ORDERED: ePHEDrine/0.9% NaCl/PF SYRINGE 50 mg/10 ml ONE (12:37)
[2017-08-24] MEDS ORDERED: Lidocaine 1% PF 5 ML VIAL ONE (12:37)
[2017-08-24] MEDS ORDERED: Fentanyl 100 MCG/2 ML VIAL ONE (12:38)
[2017-08-24] MEDS ORDERED: Promethazine HCl 25 MG/ML VIAL IM PRN (13:02)
[2017-08-24] MEDS ORDERED: Promethazine HCl 25 MG/ML VIAL SLOW IVP PRN (13:02)
[2017-08-24] MEDS ORDERED: Ondansetron HCl/PF 4 MG/2 ML Vial IVP PRN ×3 (13:02→13:16)
[2017-08-24] MEDS ORDERED: Talc Infusion/Pleuradesis 4 GM BOT ONE (13:10)
[2017-08-24] MEDS ORDERED: HYDROcodone/Acetaminophen 5/325 mg Tablet PO PRN ×3 (13:16)
--- NOTE | 2017-08-24 13:16 | OP ---
DATE OF PROCEDURE: 08/24/2017 PROCEDURES PERFORMED: Left subclavian central line placement, left thoracoscopic pleural biopsy with combined mechanical and talc pleurodesis. PREOPERATIVE DIAGNOSIS: Recurrent left pleural effusion. POSTOPERATIVE DIAGNOSIS: Recurrent left pleural effusion. SURGEON: Olivier Chacon MD ANESTHESIA: General endotracheal anesthesia. INDICATIONS: The patient is a 62-year-old man with a massive weight loss over the last several month s, who, over the last year and a half, has had gradually increasing levels of left pleural effusion t hat have occurred after a thoracentesis. Cytology so far has been negative, but has been suspicious for malignancy. FINDINGS: A modest-sized bloody effusion of several hundred mL with atherosclerotic plaque throughou t the chest cavity on the visceral and parietal surfaces with some entrapment of the lung, particular ly at the base. Frozen-section examination of the parietal pleura shows fibrosis and chronic inflamm ation. NARRATIVE REPORT: After informed consent was obtained, the patient was taken to the operating room a nd placed in supine position on the operating table. After the induction of general anesthesia, it w as opted to place a central line, because of the patient's tenuous peripheral access. The patient wa s placed in Trendelenburg and the left upper chest was prepped and draped in sterile fashion. While it was relatively easy to cannulate the left subclavian vein with the needle, there was considerable difficulty in getting a wire and catheter to pass. It was possible to get it to pass 6 or 8 cm. A s tandard large bore IV catheter was not long enough. The standard triple-lumen catheter in the kit wo uld not thread anywhere near its full length. A 5-Marshallese catheter that is commonly used for an arter ial sheath passed and aspirated and flushed well. It was secured and dressed and the patient was the n turned into the right lateral decubitus position. His right chest was prepped and draped in steril e fashion. An incision was made laterally on the chest about a handbreadth below the tip of the scap payam. Blunt dissection was used to enter the pleural space. Aliquots of bloody pleural fluid were as pirated to send for laboratory microbiologic and cytologic studies. A port was then inserted, and un kevin thoracoscopic guidance, an additional incision for chest tube exit was made low in the chest ante riorly. Through those incisions, the scope and operating instruments were used to examine the chest and to take down some of the adhesions, particularly of the lung to the anterior chest wall, plaque w as elevated off of the chest wall and bluntly dissected anteriorly and posteriorly up towards the ape x and then down towards the base. The lung did not inflate very well, but it was not feasible to gra sp the lung and initiate a dissection plane between the entrapping fibrous rind and the visceral pleu ra through the existing port sites, either by direct vision through the sites or thoracoscopically. Frozen-section examination of the tissue did not show any obvious evidence of malignancy, but instead showed chronic inflammation and fibrosis. While there was some skepticism about whether the lung wo uld adequately reexpand without a more formal decortication, it was opted to defer that until patholo gic examinations and cultures could be completed. Because of the space that was particularly pronoun odalys at the base, an incision was made to place a 36-Marshallese right angle tube that was positioned towar ds the posteromedial costophrenic sulcus. Another 36-Marshallese chest tube with additional holes cut int roduced through the low anterior incision position posterior apically. The lung was reinflated and t hen the port sites were closed with 2-0 Vicryl for the muscle and subcutaneous layers and Vicryl subc uticular suture for the skin. The wounds were dressed and the patient taken to the recovery area in stable condition.
[2017-08-24 13:23] LABS: BF Segmented Neutrophils 21 %; Cell Count Non Hematic 13 %; Lymphocytes 66 %
--- NOTE | 2017-08-24 14:32 | RAD ---
SINGLE VIEW OF THE CHEST: Indication: Status post thoracotomy. FINDINGS: Since the comparison examination there has been interval placement of two large bore chest tubes. Sma ll right effusion remains. There has been some improvement in aeration of the left lower lobe. There is a new central venous catheter now projecting in the region of the right IJ. Recommend consideratio n for re-direction. Endograft stent is in the right subclavian region and right axillary region, stab le. Sternotomy changes and cardiomegaly is similar. IMPRESSION: 1. Interval placement of two left sided thoracotomy tubes. Moderate residual pleural effusion remains . There has been some improved aeration of the left lower lobe. Continued follow up is recommended. 2. Left subclavian central venous catheter projecting in the region of the left IJ. Recommend conside ration for repositioning. 3. Stable cardiopulmonary. POS: [facility]
[2017-08-24] MEDS: Metoprolol Tartrate 50 MG TAB PO SCH ×2 (15:32→22:30)
[2017-08-24] MEDS: Sevelamer Carbonate 800 MG TAB PO SCH ×2 (15:32→17:59)
[2017-08-24] MEDS: Aspirin 81 mg Enteric Coated Tablet PO SCH (16:03)
[2017-08-24] MEDS: Prenatal Vitamin 1 TAB PO SCH (16:03)
[2017-08-24] MEDS: HYDROcodone/Acetaminophen 5/325 mg Tablet PO PRN ×2 (16:03→23:36)
[2017-08-24] MEDS: Fish Oil 1,000 MG CAP PO SCH (16:03)
[2017-08-24] MEDS: Cinacalcet HCl 30 MG TAB PO SCH (16:06)
[2017-08-24] MEDS: Lisinopril 2.5 MG TAB PO SCH (20:35)
[2017-08-24] MEDS: Atorvastatin Calcium 20 MG TAB PO SCH (20:35)
[2017-08-25 05:14] LABS: #Lymphocytes 0.5 thou/uL (1.20-3.40); #Monocytes 1.3 thou/uL (0.11-0.59); %Basophils 0.1 % (0.0-1.0); %Eosinophils 0.2 % (0.0-10.0); %Lymphocytes 4.2 % (21.0-51.0); %Monocytes 11.1 % (0.0-10.0); %Neutrophils 84.5 % (42.0-75.0); Hemoglobin 8.6 g/dL (14.0-18.0); Mean Corpuscular HGB CONC 31.8 g/dL (32.0-36.0); Mean Corpuscular Hemoglobin 31.8 pg (27.0-31.0); Mean Platelet Volume 6.3 fL (7.4-10.4); Platelet Count 244 thou/uL (130-400); RBC Distribution Width 13.1 % (11.5-14.5); Red Blood Cell (RBC) Count 2.71 mill/uL (4.70-6.10); White Blood Cell (WBC) Count 11.9 thou/uL (4.8-10.8)
[2017-08-25 05:34] LABS: Anion Gap 17 mmol/L (10-20); BUN (Urea Nitrogen) 45 mg/dL (8.4-25.7); Calc. Creatinine Clearance 11 mL/min (70-130); Calcium 8.8 mg/dL (7.8-10.44); Carbon Dioxide 21 mmol/L (23-31); Chloride 101 mmol/L (98-107); Estimated GFR-MDRD 9; Glucose 116 mg/dL (80-115); Potassium 5.2 mmol/L (3.5-5.1); Sodium 134 mmol/L (136-145)
--- NOTE | 2017-08-25 08:16 | RAD ---
UPRIGHT PORTABLE CHEST 1 VIEW: Date: 08/25/17 HISTORY: 62-year-old male status post thoracostomy. COMPARISON: 08/24/17. FINDINGS: Left chest tube is in place. Left subclavian catheter with tip extending into the left jugular vein. Stable postoperative midline sternotomy and right-sided venous vascular stents. No evidence for signi ficant pneumothorax, although there is probably some loculated pleural air in the area of previously noted pleural thickening. The right chest is stable. Minimal parenchymal changes in the left mid and lower lung zone. IMPRESSION: Minimally decreased pleural changes on the left with some tiny foci of loculated air within the left pleural space. Two left chest tubes in place. Stable parenchymal changes in the left mid and lower lion ng zone. Continue short-term follow-up. POS: [facility]
[2017-08-25] MEDS ORDERED: Communication Order-Pharmacy FS SCH (09:14)
[2017-08-25] MEDS: Sevelamer Carbonate 800 MG TAB PO SCH ×3 (10:19→16:51)
[2017-08-25] MEDS: Metoprolol Tartrate 50 MG TAB PO SCH ×2 (10:20→20:22)
[2017-08-25] MEDS: Prenatal Vitamin 1 TAB PO SCH (12:23)
[2017-08-25] MEDS: Aspirin 81 mg Enteric Coated Tablet PO SCH (12:23)
[2017-08-25] MEDS: Cinacalcet HCl 30 MG TAB PO SCH (12:23)
[2017-08-25] MEDS: Fish Oil 1,000 MG CAP PO SCH (12:23)
[2017-08-25] MEDS: Epoetin (ESRD) 20,000 UNITS/ML SC SCH (14:05)
--- NOTE | 2017-08-25 15:15 | EKG ---
Test Reason : PREOP Blood Pressure : / mmHG Vent. Rate : 049 BPM Atrial Rate : 049 BPM P-R Int : 150 ms QRS Dur : 146 ms QT Int : 536 ms P-R-T Axes : 049 -20 -29 degrees QTc Int : 484 ms Marked sinus bradycardia with Premature ventricular complexes Right bundle branch block Abnormal ECG Confirmed by ZHANNA PEREZ ([id number]) on 08/25/2017 3:15:16 PM Referred By: LEWIS Confirmed By:ZHANNA PEREZ
[2017-08-25] MEDS: HYDROcodone/Acetaminophen 5/325 mg Tablet PO PRN (16:50)
[2017-08-25] MEDS: Lisinopril 2.5 MG TAB PO SCH (20:22)
[2017-08-25] MEDS: Atorvastatin Calcium 20 MG TAB PO SCH (20:22)
[2017-08-26] MEDS ORDERED: CEFAZOLIN/Water 2 GM/20 ML SYRINGE SLOW IVP SCH (04:00)
[2017-08-26] MEDS ORDERED: Midazolam HCl 2 mg/2 ml Vial ONE (06:28)
[2017-08-26] MEDS ORDERED: Fentanyl 100 MCG/2 ML VIAL ONE ×4 (06:29→13:24)
[2017-08-26] MEDS ORDERED: Ropivacaine 0.5% HCl/PF (150 MG/30 ML VIAL) ONE (06:39)
[2017-08-26] MEDS ORDERED: CEFAZOLIN/Water 2 GM/20 ML SYRINGE ONE (07:04)
[2017-08-26] MEDS ORDERED: Phenylephrine HCL 10 MG/ML VIAL ONE (08:00)
[2017-08-26] MEDS ORDERED: Ropivacaine HCl/PF 500 ML in Premix Bag 1 BAG NERVE BLCK SCH (08:15)
[2017-08-26] MEDS ORDERED: Ropivacaine 0.2% HCl/PF 20 ML ONE (11:57)
[2017-08-26] MEDS ORDERED: Ondansetron HCl/PF 4 MG/2 ML Vial IVP PRN ×2 (13:13→14:52)
[2017-08-26] MEDS ORDERED: Morphine 4 MG/ML Carpuject SLOW IVP PRN (13:13)
[2017-08-26] MEDS ORDERED: HYDROcodone/Acetaminophen 5/325 mg Tablet PO PRN ×2 (13:13)
[2017-08-26] MEDS ORDERED: Dexamethasone 20 MG/5 ML VIAL ONE (13:52)
[2017-08-26] MEDS ORDERED: Ondansetron HCl/PF 4 MG/2 ML Vial ONE (13:52)
[2017-08-26] MEDS ORDERED: PHENYLEPHRINE-NS 100 MCG/ML 10 ML SYRINGE ONE (13:52)
[2017-08-26] MEDS ORDERED: PROPOFOL 200 MG/20 ML VIAL ONE (13:52)
[2017-08-26] MEDS ORDERED: Glycopyrrolate 0.2 MG/ML 5 ML SYRINGE ONE (13:52)
[2017-08-26] MEDS: Sevelamer Carbonate 800 MG TAB PO SCH ×3 (14:18→16:31)
[2017-08-26] MEDS: Cinacalcet HCl 30 MG TAB PO SCH (14:19)
[2017-08-26] MEDS: Fish Oil 1,000 MG CAP PO SCH (14:19)
[2017-08-26] MEDS: Prenatal Vitamin 1 TAB PO SCH (14:19)
[2017-08-26] MEDS: Metoprolol Tartrate 50 MG TAB PO SCH ×2 (14:19→21:13)
[2017-08-26] MEDS: Aspirin 81 mg Enteric Coated Tablet PO SCH (14:19)
[2017-08-26 14:28] LABS: Hemoglobin 8.1 g/dL (14.0-18.0); Mean Corpuscular Hemoglobin 32.5 pg (27.0-31.0); Mean Corpuscular Volume 95.6 fL (78.0-98.0); Mean Platelet Volume 6.1 fL (7.4-10.4); Platelet Count 218 thou/uL (130-400); RBC Distribution Width 13.2 % (11.5-14.5)
[2017-08-26 14:41] LABS: Anion Gap 13 mmol/L (10-20); BUN (Urea Nitrogen) 30 mg/dL (8.4-25.7); Calc. Creatinine Clearance 14 mL/min (70-130); Calcium 7.9 mg/dL (7.8-10.44); Carbon Dioxide 25 mmol/L (23-31); Chloride 105 mmol/L (98-107); Estimated GFR-MDRD 12; Glucose 137 mg/dL (80-115); Potassium 4.7 mmol/L (3.5-5.1); Sodium 138 mmol/L (136-145)
[2017-08-26 14:50] LABS: Band 10 % (5-11); Basophilic Stippling SLIGHT = 1-2 cells (100X) (None Seen); Eosinophils 1 % (0-10); Lymphocytes 3 % (21-51); MDiff Complete? YES; Neutrophil 86 % (42-75); PLT Morphology Comment Appears Adequate; Polychromasia SLIGHT = 2-3 cells (100X) (0-2/hpf)
[2017-08-26] MEDS ORDERED: Promethazine HCl 25 MG/ML VIAL SLOW IVP PRN (14:52)
[2017-08-26] MEDS ORDERED: Promethazine HCl 25 MG/ML VIAL IM PRN (14:52)
--- NOTE | 2017-08-26 15:06 | RAD ---
CHEST ONE VIEW: HISTORY: Status post thoracotomy. COMPARISON: 08/26/2017 FINDINGS: There are sternotomy wires. There is atherosclerosis of the aorta. The heart continues to be enlarg ed. Stable vascular stents projecting over the right axilla and right hemithorax. Stable right-sided vascular catheter with the distal tip oriented in a cephalad direction, likely in the internal jugular vein. There has been placement of a third left-sided chest tube. There is subc utaneous emphysema in the left chest wall. There is persistent increased density of the left pleural margin. Two additional stable left-sided chest tubes are noted. Pneumothorax is not appreciated on the current exam. IMPRESSION: 1. Interval placement of a third left-sided chest tube. There is a associated subcutaneous emphysem a. 2. Persistent pleural thickening in the left hemithorax. 3. Persistent central venous catheter. POS: [facility]
--- NOTE | 2017-08-26 15:37 | OP ---
DATE OF PROCEDURE: 08/26/2017 PROCEDURES PERFORMED: Muscle sparing left thoracotomy with total lung decortication, ON-Q PainBuster subpleural catheter placement x2, and right femoral venous line placement. PREOPERATIVE DIAGNOSIS: Left fibrothorax. POSTOPERATIVE DIAGNOSIS: Left fibrothorax. SURGEON: Olivier Chacon MD ANESTHESIA: General endotracheal. INDICATIONS: The patient is a 62-year-old dialysis patient, who about 2 years ago underwent coronary artery bypass grafting, utilizing a left internal mammary artery graft to his LAD. He had minimal blunting of his left costophrenic angle at the time of discharge and it became sharp few months later. However, over the last year and a half, he has gradually developed a fairly good size left pleural effusion and has been associated with severe weight loss over the last few months and cytology of pleural fluid aspirated was nondiagnostic, but worrisome for malignancy. Thoracoscopy day before yesterday showed findings consistent with fibrothorax with no obvious evidence of malignancy. He is now returned to the operating room for open decortication. FINDINGS: Densely adherent rind and trapping both lobes in the lingula. NARRATIVE REPORT: After informed consent was obtained, the patient was taken to the operating room and placed in supine position on the operating table. After the induction of general endotracheal anesthesia and confirmation of placement of his double lumen endotracheal tube, he was placed in Trendelenburg and his right neck and upper chest were prepped and draped in sterile fashion. Using ultrasound, the right internal jugular vein was identified and cannulated ; however, a wire could not be passed in spite of several attempts. Ultrasonographic visualization of the jugular low in the neck appeared to demonstrate loss of lumen. The subclavian artery and vein could be identified and a brief attempt was made to cannulate the subclavian vein, which when unsuccessful was abandoned. The patient's right groin was then prepped and draped in sterile fashion and the right femoral vein was cannulated just medial to the palpable femoral pulse. It aspirated and a guidewire passed easily. The tract was dilated and a triple-lumen central line kit was used to cannulate the femoral vein by the Seldinger technique. All three ports easily aspirated and flushed and the line was secured to the skin with suture. The patient was then turned into the right lateral decubitus position. Single lung ventilation to the right lung was initiated and the existing left-sided chest tubes were removed. The patient's left chest was then prepped and draped in sterile fashion. A slightly curvilinear incision was made transversely on the left chest laterally using a scalpel and electrocautery. The latissimus and serratus were mobilized in the fifth intercostal space was entered. Fluid from the space was aspirated with a Yankauer sucker and the chest was examined. No irregularities or nodular masses suggestive of malignancy that had escaped identification at the time of thoracoscopy were identified. No free edge of the rind and trapping the lungs could be identified. Knife was then used to sharply incise the rind over the lower lobe, which was atelectatic to the size a little bit, about the size of 1 fist. When the visceral pleura was identified , the rind was elevated. This process was extended overlying the entire lobe and then accomplished on the upper lobe as well and this was a long drawn out process because of how densely adherent the rind was to the pleura. The internal mammary graft was not identified. Emerging from the tip of the lingula was a structure that at least mimics venous structure that appeared to be heading into the pericardium, did not seem plausible that this was indeed mammary, but it was avoided choosing to not decorticate that tip of the lingula rather than risk dividing the internal mammary graft. The lung was reinflated and reinspected for adequacy of decortication several areas on the lower lobe still appeared to be constricted. These were incised and debrided using a scalpel. The lingula was further decorticated and then single lung ventilation reinitiated. Anterior and posterior chest tubes were positioned at the apex with additional holes cut in them. A right-angle basilar tube was placed with the tip of the tube at the posteromedial costophrenic sulcus. ON-Q PainBuster catheters were introduced into the chest and then tunneled deep to the pleura superiorly and inferiorly from the posterior apex of the intercostal incision and 5 mL of 0.2% ropivacaine were bolused into each of those catheters. Catheters were secured to the skin with suture. The ribs were reapproximated with #1 Vicryl [id number] pericostal sutures. The latissimus and serratus were reapproximated in their anatomic positions with running #1 Vicryl. A 19 Slovak bulb suction drain was brought out through a separate incision and placed in the subcutaneous space that had been developed superficial to the latissimus. The subcu was then reapproximated with running Vicryl and the skin was closed with Vicryl subcuticular stitch and Steri-Strips. The wounds were dressed and the patient taken to the recovery area, extubated in stable condition. Estimated blood loss during the procedure was 750 mL. He received 1500 mL of crystalloid and 2 units of banked blood. MICHELLE
[2017-08-26] MEDS: Ketorolac Tromethamine 30 MG/ML VIAL IVP SCH ×3 (16:19→23:49)
[2017-08-26] MEDS: HYDROcodone/Acetaminophen 5/325 mg Tablet PO PRN (17:58)
[2017-08-26] MEDS: Atorvastatin Calcium 20 MG TAB PO SCH (21:13)
[2017-08-26] MEDS: Lisinopril 2.5 MG TAB PO SCH (21:13)
[2017-08-27 03:46] LABS: #Lymphocytes 0.5 thou/uL (1.20-3.40); #Monocytes 0.8 thou/uL (0.11-0.59); #Neutrophils 8.3 thou/uL (1.40-6.50); %Basophils 0.1 % (0.0-1.0); %Eosinophils 0.1 % (0.0-10.0); %Monocytes 8.6 % (0.0-10.0); %Neutrophils 86.2 % (42.0-75.0); Hemoglobin 9.5 g/dL (14.0-18.0); Mean Corpuscular HGB CONC 34.2 g/dL (32.0-36.0); Mean Corpuscular Hemoglobin 32.2 pg (27.0-31.0); Mean Corpuscular Volume 94.2 fL (78.0-98.0); Mean Platelet Volume 6.1 fL (7.4-10.4); Platelet Count 191 thou/uL (130-400); RBC Distribution Width 13.9 % (11.5-14.5); Red Blood Cell (RBC) Count 2.95 mill/uL (4.70-6.10); White Blood Cell (WBC) Count 9.7 thou/uL (4.8-10.8)
[2017-08-27 04:07] LABS: Anion Gap 13 mmol/L (10-20); BUN (Urea Nitrogen) 41 mg/dL (8.4-25.7); Calc. Creatinine Clearance 13 mL/min (70-130); Calcium 8.3 mg/dL (7.8-10.44); Carbon Dioxide 25 mmol/L (23-31); Chloride 103 mmol/L (98-107); Estimated GFR-MDRD 10; Glucose 130 mg/dL (80-115); Potassium 4.7 mmol/L (3.5-5.1); Sodium 136 mmol/L (136-145)
[2017-08-27 05:17] LABS: Fungus Stain Final report (.)
[2017-08-27 05:17] LABS: Fungus Stain Final report (.)
--- NOTE | 2017-08-27 05:28 | CON ---
DATE OF CONSULTATION: 08/26/2017 HISTORY OF PRESENT ILLNESS: This is a 62-year-old gentleman status post thoracotomy. It started at the bedside. The patient has longstanding history of renal failure, being dialyzed 3 t imes a week. He had a spontaneous pneumothorax, lost 80 pounds across several years now. Apparently because of trapped left lung, he underwent decortication, he is now in the ICU. PAST MEDICAL HISTORY: Pertinent for renal failure, hypertension, coronary artery disease, tachybrady syndrome, atrial fibrillation, CHF, diabetes. PAST SURGICAL HISTORY: Bypass stent ablation, knee surgery. CURRENT MEDICATION: From home includes a long list of medicine; multivitamin, omeprazole 40, Lopress or 100 twice a day, Zestril 2.5, Lipitor 20, aspirin. SOCIAL AND FAMILY HISTORY: Unremarkable. No alcohol abuse, no tobacco abuse. REVIEW OF SYSTEMS: Otherwise, 10-point negative. PHYSICAL EXAMINATION: GENERAL: Postop pain. VITAL SIGNS: Sats are 97, blood pressure 106/84, pulse 96, respiratory rate 18. CHEST: Decreased breath sounds, minimal crackles. CARDIAC: Normal S1 and S2. No gallops . ASSESSMENT: 1. The patient is status post total decortication of left fibrothorax. 2. Status post coronary artery bypass surgery. 3. Left pleural effusion, status post coronary artery bypass graft, trapped lung. 4. Significant weight loss. Otherwise, except for pain, the patient is hemodynamically stable. Continue neb treatment, supportiv e care, and PT. We will follow while in the ICU. Early ambulation. Consultation note, 70 minutes, 50% in direct patient care.
[2017-08-27] MEDS: Ketorolac Tromethamine 30 MG/ML VIAL IVP SCH ×3 (05:40→23:02)
--- NOTE | 2017-08-27 08:28 | RAD ---
CHEST 1 VIEW: HISTORY: A 62-year-old male with a history of status post thoracotomy. FINDINGS: Three chest tubes again noted in place. There is cardiomegaly. Left subclavian catheter extends int o the left jugular vein. Subcutaneous emphysema appears to be improving as well as improvement in th e small apical pneumothorax. The right chest remains stable. IMPRESSION: Persistent pleural and parenchymal opacity changes in the left chest with slightly smaller left-sided apical pneumothorax and subcutaneous emphysema. No new process. POS: [facility]
[2017-08-27] MEDS: Metoprolol Tartrate 50 MG TAB PO SCH ×2 (08:36→21:36)
[2017-08-27] MEDS: Sevelamer Carbonate 800 MG TAB PO SCH ×3 (09:04→18:02)
[2017-08-27] MEDS: Cinacalcet HCl 30 MG TAB PO SCH (09:06)
[2017-08-27] MEDS: Fish Oil 1,000 MG CAP PO SCH (09:06)
[2017-08-27] MEDS: Prenatal Vitamin 1 TAB PO SCH (09:06)
[2017-08-27] MEDS: Aspirin 81 mg Enteric Coated Tablet PO SCH (09:28)
--- NOTE | 2017-08-27 11:36 | PRG ---
DATE OF SERVICE: 08/27/2017 SUBJECTIVE: Jaret is awake, alert, and responsive, less pain and less shortness of breath. OBJECTIVE: VITAL SIGNS: Blood pressure is 89/40, sats 100% on room air, respiratory rate 17, pulse 64. CHEST: Bilateral rhonchi and crackles. CARDIAC: Normal S1, S2. ABDOMEN: Soft. No mass. LABORATORY DATA: White count is 9,000, hemoglobin and hematocrit 9 and 27, platelet count 191. Elec trolytes are normal, creatinine 5.7. IMPRESSION: 1. Status post left decortication for fibrothorax trapped lung. 2. Renal failure, chronic, on dialysis. PLAN: 1. Continue neb treatment, PT and supportive care. 2. Chest x-ray shows haziness, but appears the lung is reexpanded. There is a small residual left-s ided pneumothorax. 3. We will follow.
[2017-08-27] MEDS ORDERED: Ondansetron HCl/PF 4 MG/2 ML Vial IVP PRN (16:42)
[2017-08-27] MEDS ORDERED: HYDROcodone/Acetaminophen 5/325 mg Tablet PO PRN (16:42)
[2017-08-27] MEDS ORDERED: Bisacodyl 10 MG SUPP PR PRN (16:42)
[2017-08-27] MEDS ORDERED: Mineral Oil ENEMA PR PRN (16:42)
[2017-08-27] MEDS ORDERED: Milk Of Magnesia 30 ML UDCUP PO PRN (16:42)
[2017-08-27] MEDS: HYDROcodone/Acetaminophen 5/325 mg Tablet PO PRN (21:15)
[2017-08-27] MEDS: Atorvastatin Calcium 20 MG TAB PO SCH (21:34)
[2017-08-27] MEDS: Lisinopril 2.5 MG TAB PO SCH (21:35)
[2017-08-27] MEDS ORDERED: Cepastat Lozenges 1 LOZ PO PRN (23:21)
[2017-08-28] MEDS: Ketorolac Tromethamine 30 MG/ML VIAL IVP SCH ×4 (04:49→23:21)
--- NOTE | 2017-08-28 08:02 | RAD ---
PORTABLE CHEST: Date: 08/28/17 PROVIDED CLINICAL HISTORY: Status post thoracotomy. FINDINGS: Comparison with 08/27/17. Significant interval change with respect to the prior examination is not apparent. IMPRESSION: As above. POS: [facility]
[2017-08-28] MEDS: Aspirin 81 mg Enteric Coated Tablet PO SCH (09:55)
[2017-08-28] MEDS: Metoprolol Tartrate 50 MG TAB PO SCH ×2 (09:55→20:45)
[2017-08-28] MEDS: Prenatal Vitamin 1 TAB PO SCH (09:55)
[2017-08-28] MEDS: Fish Oil 1,000 MG CAP PO SCH (09:55)
[2017-08-28] MEDS: Cinacalcet HCl 30 MG TAB PO SCH (09:55)
[2017-08-28] MEDS: Sevelamer Carbonate 800 MG TAB PO SCH ×3 (09:55→18:08)
[2017-08-28] MEDS ORDERED: Guaifenesin DM 100-10/5 ML UDCUP PO PRN ×2 (10:41)
--- NOTE | 2017-08-28 11:14 | PRG ---
DATE OF SERVICE: 08/28/2017 SUBJECTIVE: The patient appears to be doing reasonably well. He had no acute complaints. PHYSICAL EXAMINATION: VITAL SIGNS: Temperature is 96.9, pulse 71, respirations 18, O2 sat 100%, blood pressure 94/54. HEENT: Unremarkable. NECK: No JVD. LUNGS: Diminished breath sounds in the left base. He has 2 chest tubes on the left. Right side jagjit ar. CARDIAC: S1 and S2, regular. ABDOMEN: Soft. EXTREMITIES: No edema. LABORATORY DATA: No new labs were done today. Micro data showed no new culture results. ASSESSMENT: 1. Left pleural effusion - status post decortication for fibrothorax/trapped lung. 2. Renal failure, requiring hemodialysis. PLAN: Continue with chest tube drainage for the time being. The x-ray looks unchanged.
[2017-08-28 13:45] LABS: Anion Gap 16 mmol/L (10-20); BUN (Urea Nitrogen) 33 mg/dL (8.4-25.7); Calc. Creatinine Clearance 15 mL/min (70-130); Calcium 9.4 mg/dL (7.8-10.44); Carbon Dioxide 27 mmol/L (23-31); Chloride 99 mmol/L (98-107); Estimated GFR-MDRD 12; Glucose 71 mg/dL (80-115); Potassium 4.8 mmol/L (3.5-5.1); Sodium 137 mmol/L (136-145)
[2017-08-28] MEDS: Lisinopril 2.5 MG TAB PO SCH (20:44)
[2017-08-28] MEDS: Atorvastatin Calcium 20 MG TAB PO SCH (20:44)
[2017-08-29] MEDS: Ketorolac Tromethamine 30 MG/ML VIAL IVP SCH ×4 (05:20→22:02)
[2017-08-29 06:22] LABS: Band 13 % (5-11); Hemoglobin 10.2 g/dL (14.0-18.0); Hypochromia SLIGHT = 6-15 cells (100X) (0-5/hpf); Lymphocytes 4 % (21-51); MDiff Complete? YES; Mean Corpuscular HGB CONC 32.5 g/dL (32.0-36.0); Mean Corpuscular Hemoglobin 31.7 pg (27.0-31.0); Mean Corpuscular Volume 97.4 fL (78.0-98.0); Mean Platelet Volume 5.8 fL (7.4-10.4); Monocytes 1 % (0-10); Neutrophil 82 % (42-75); PLT Morphology Comment Appears Adequate; Platelet Count 225 thou/uL (130-400); RBC Distribution Width 13.2 % (11.5-14.5); Red Blood Cell (RBC) Count 3.23 mill/uL (4.70-6.10); White Blood Cell (WBC) Count 11.5 thou/uL (4.8-10.8)
--- NOTE | 2017-08-29 08:58 | RAD ---
PORTABLE CHEST: Date: 08/29/17 PROVIDED CLINICAL HISTORY: Status post thoracotomy. FINDINGS: Comparison with 08/28/17. Significant interval change with respect to the prior examination is not apparent. IMPRESSION: As above. POS: [facility]
[2017-08-29] MEDS: Sevelamer Carbonate 800 MG TAB PO SCH ×3 (09:22→18:41)
[2017-08-29] MEDS: Cinacalcet HCl 30 MG TAB PO SCH (09:23)
[2017-08-29] MEDS: Fish Oil 1,000 MG CAP PO SCH (09:23)
[2017-08-29] MEDS: Aspirin 81 mg Enteric Coated Tablet PO SCH (09:24)
[2017-08-29] MEDS: Prenatal Vitamin 1 TAB PO SCH (09:24)
[2017-08-29] MEDS: Metoprolol Tartrate 50 MG TAB PO SCH ×2 (09:26→20:16)
--- NOTE | 2017-08-29 11:16 | PRG ---
DATE OF SERVICE: 08/29/2017 SUBJECTIVE: He was just given some pain medicine and he is sleeping. His son was at the bedside. Filiberto goldman has [address], but both are to waterseal. PHYSICAL EXAMINATION: VITAL SIGNS: Temperature is 98.5, pulse 78, respirations 18, O2 sat 94%, blood pressure 101/53. HEENT: Unremarkable. NECK: No JVD. CHEST: Diminished breath sounds in the left base, right side clear. CARDIAC: S1 and S2, regular. ABDOMEN: Soft. EXTREMITIES: No edema. LABORATORY DATA: White blood cell count 11.5, hematocrit 31.4, platelet count 225. Sodium 137, pota ssium 4.8, chloride 99, CO2 of 27, BUN 33, creatinine 4.8, glucose 71. Chest x-ray shows chest tubes along with some volume loss in the left base. ASSESSMENT: 1. Left pleural effusion - status post decortication for fibrothorax. 2. Renal failure, requiring hemodialysis. PLAN: Continue chest tube drainage. Dr. Li will return tomorrow.
[2017-08-29] MEDS ORDERED: Vancomycin HCl 1 GM in Premix Bag 1 BAG IVPB SCH (15:00)
[2017-08-29] MEDS: Acetaminophen 325 MG TAB PO PRN (15:44)
[2017-08-29] MEDS: Acetaminophen 650 MG Suppository PR PRN (16:35)
[2017-08-29] MEDS: HYDROcodone/Acetaminophen 5/325 mg Tablet PO PRN (20:08)
[2017-08-29] MEDS: Atorvastatin Calcium 20 MG TAB PO SCH (20:08)
[2017-08-29] MEDS: Lisinopril 2.5 MG TAB PO SCH (20:16)
--- NOTE | 2017-08-29 22:15 | OP ---
DATE OF PROCEDURE: 08/29/2017 PROCEDURE PERFORMED: Left femoral venous central line placement with ultrasound guidance. PREOPERATIVE DIAGNOSES: Possible line sepsis; poor peripheral IV access. POSTOPERATIVE DIAGNOSES: Possible line sepsis; poor peripheral IV access. SURGEON: Olivier Chacon MD ANESTHESIA: Lidocaine 1% local anesthesia. INDICATIONS: The patient is a 62-year-old dialysis patient who had undergone decortication of a fibr othorax, he has extremely poor peripheral as well as central access. He has developed some new confu melina and fever and his existing lines are being removed. NARRATIVE REPORT: After the patient has been transported into the Intensive Care Unit, he was positi oned supine with his left leg slightly frog legged. An ultrasound was used to interrogate the left g roin. Femoral artery and vein were identified. For several centimeters length the vein appeared to be patent and was compressible. That area was prepped and draped in sterile fashion. Lidocaine 1% w as used to infiltrate the skin and subcutaneous tissues in a line with the femoral vein just medial t o the palpable femoral pulse. A large bore needle was used to cannulate the left femoral vein throug h which a guidewire was placed. The tract was then dilated and a triple-lumen catheter inserted over the line by the Seldinger technique. The wire removed easily. All three ports easily aspirated and flushed. A 20 mL of blood was drawn coincident with line placement to send for blood cultures. The ports were capped and flushed. The line was secured and dressed.
[2017-08-30] MEDS: Sevelamer Carbonate 800 MG TAB PO SCH ×4 (08:10→18:33)
[2017-08-30] MEDS: Metoprolol Tartrate 50 MG TAB PO SCH ×3 (08:10→22:53)
--- NOTE | 2017-08-30 08:54 | RAD ---
SINGLE VIEW CHEST: Date: 08/29/17 HISTORY: Postoperative left thoracentesis. FINDINGS: Single view of the chest shows an enlarged but stable cardiomediastinal silhouette. The patient is st atus post sternotomy. There are left-sided chest tubes and a subcutaneous drain in the left chest wal l. There is persistent pleural thickening in the left thorax. There may be a small left apical pneumo thorax. Central venous catheter has been removed. Stents are seen in the right arm. IMPRESSION: Postsurgical changes of the left thorax as above. POS: [facility]
--- NOTE | 2017-08-30 08:56 | PRG ---
DATE OF SERVICE: 08/30/2017 This patient appears to be awake, alert, responsive, in no distress. He denies any pain or discomfor t. He is being dialyzed. PHYSICAL EXAMINATION: VITAL SIGNS: Blood pressure 98/40, sats are 98%, respiration rate 18. CHEST: Chest reveals decreased breath sounds without any wheezing. CARDIAC: Normal S1, S2. No gallops. ABDOMEN: Soft, no masses. He has got coagulase negative Staph in the pleural tissue. I doubt that a true pathogen. IMPRESSION: 1. Status post decortication from fibrothorax. 2. End-stage renal disease. The patient appears to be at his baseline. He can be transferred out of the ICU. Continue PT and kendall pportive care. We will follow while in the ICU.
[2017-08-30] MEDS: Vancomycin HCl 1 GM in Premix Bag 1 BAG IVPB SCH (09:40)
[2017-08-30] MEDS: Prenatal Vitamin 1 TAB PO SCH (11:35)
[2017-08-30] MEDS: Cinacalcet HCl 30 MG TAB PO SCH (11:36)
[2017-08-30] MEDS: Aspirin 81 mg Enteric Coated Tablet PO SCH (11:36)
[2017-08-30] MEDS: Fish Oil 1,000 MG CAP PO SCH (11:36)
[2017-08-30] MEDS: Acetaminophen 650 MG Suppository PR PRN (20:09)
[2017-08-30 21:07] LABS: Actual Bicarbonate (HCO3a) 27.5 mEq/L (22-28); Base Excess (BEa) 4.4 mEq/L (-2.0 to +3.0); CO2 Tension 35.3 mmHg (35.0-45.0); Calcium, Ionized 1.1 mmol/L (1.12-1.30); Hemoglobin (Hb) 9.7 g/dL (14.0-18.0); O2 Tension (PaO2) 64.5 mmHg (> 80.0); pH, Arterial 7.51 (7.35-7.45)
[2017-08-30 21:08] LABS: ALV-art Gradient 41.105 (0-20); Puncture Site LBR
--- NOTE | 2017-08-30 21:26 | RAD ---
SINGLE VIEW CHEST: HISTORY: Altered mental status. COMPARISON: 08/30/2017 FINDINGS: A single view of the chest shows an enlarged but stable cardiomediastinal silhouette. The patient is status post sternotomy. Left-sided chest tubes are again seen, and a stable left apical pneumothora x is present. Vascular stents are seen in the right arm. IMPRESSION: Stable examination. POS: [facility]
[2017-08-30 21:40] LABS: Band 22 % (5-11); Hemoglobin 9.2 g/dL (14.0-18.0); Hypochromia SLIGHT = 6-15 cells (100X) (0-5/hpf); Lymphocytes 4 % (21-51); MDiff Complete? YES; Mean Corpuscular HGB CONC 32.7 g/dL (32.0-36.0); Mean Corpuscular Hemoglobin 31.6 pg (27.0-31.0); Mean Corpuscular Volume 96.8 fL (78.0-98.0); Monocytes 8 % (0-10); Neutrophil 66 % (42-75); PLT Morphology Comment Appears Adequate; Platelet Count 235 thou/uL (130-400); RBC Distribution Width 12.9 % (11.5-14.5); Red Blood Cell (RBC) Count 2.92 mill/uL (4.70-6.10); White Blood Cell (WBC) Count 8.4 thou/uL (4.8-10.8)
[2017-08-30] MEDS ORDERED: Calcium Chloride 1 GM/10 ML Abboject SYRINGE IVP SCH (22:00)
[2017-08-30] MEDS: Atorvastatin Calcium 20 MG TAB PO SCH (22:52)
[2017-08-30] MEDS: Lisinopril 2.5 MG TAB PO SCH (22:53)
--- NOTE | 2017-08-31 05:44 | CON ---
DATE OF CONSULTATION: 08/30/2017 HISTORY OF PRESENT ILLNESS: I was called to see Mr. Raygoza due to hypotension and somnolence. He has undergone left decortication for empyema. Cultures have grown coagulase-negative Staphylococcus. He has been maintained on his usual dialysis schedule. He has been on vancomycin postoperatively. Current white blood cell count is 11.5, hemoglobin is 10.2. Arterial blood gas shows a pH of 7.51, pCO2 of 35, pO2 of 65, bicarbonate of 27. His potassium is 4.8 on his most recent blood gas, calcium is 1.14. Chest x-ray has been taken which shows no infiltrates. Chest tubes are to water seal with normal drainage and no air leak. PHYSICAL EXAMINATION: GENERAL: The patient is arousable. VITAL SIGNS: His pulse is 90 in sinus, his blood pressure 100/56. CHEST: Clear. HEART: Rhythm is regular. ABDOMEN: Soft and nontender. EXTREMITIES: He has no edema. ASSESSMENT: Due to him undergoing dialysis today and probably being volume depleted - we will give him a bolus of albumin and also give him a half amp of calcium. Otherwise, continue his usual medicines and medical treatment. MICHELLE
--- NOTE | 2017-08-31 07:43 | RAD ---
SINGLE VIEW OF THE CHEST: COMPARISON: 08/30/17. HISTORY: Postoperative left thoracotomy. FINDINGS: A single view of the chest shows an enlarged but stable cardiomediastinal silhouette. The patient is status post sternotomy. Left-sided chest tubes are again seen with a stable small left apical pneum othorax. There may be a small left pleural effusion. IMPRESSION: Stable exam. POS: [facility]
[2017-08-31] MEDS: Aspirin 81 mg Enteric Coated Tablet PO SCH (08:16)
[2017-08-31] MEDS: Prenatal Vitamin 1 TAB PO SCH (08:16)
[2017-08-31] MEDS: Fish Oil 1,000 MG CAP PO SCH (08:16)
[2017-08-31] MEDS: Cinacalcet HCl 30 MG TAB PO SCH (08:16)
[2017-08-31] MEDS: Sevelamer Carbonate 800 MG TAB PO SCH ×3 (08:17→19:00)
[2017-08-31] MEDS: Metoprolol Tartrate 50 MG TAB PO SCH ×2 (08:24→23:31)
[2017-08-31] MEDS ORDERED: Epoetin (ESRD) 20,000 UNITS/ML SC SCH (09:00)
--- NOTE | 2017-08-31 09:18 | PRG ---
DATE OF SERVICE: 08/31/2017 This morning he is awake, alert and responsive. He was confused and agitated yesterday. PHYSICAL EXAMINATION: VITAL SIGNS: Sats are 100% on room air, respiration 20, temperature 98, blood pressure 120/46. CHEST: Chest revealed decreased breath sounds, no wheezing. CARDIAC: Normal S1-S2. No gallops. ABDOMEN: Soft, no masses. IMPRESSION: 1. Underlying chronic obstructive pulmonary disease. 2. Status post decortication. 3. Renal failure. PLAN: Continue observation in the ICU. Supportive care. Avoid excessive medication.
[2017-08-31] MEDS: Atorvastatin Calcium 20 MG TAB PO SCH (20:39)
[2017-08-31] MEDS: Lisinopril 2.5 MG TAB PO SCH (20:40)
--- NOTE | 2017-09-01 09:10 | PRG ---
DATE OF SERVICE: 09/01/2017 This morning he is better, he is less encephalopathic, less agitated. He is being dialyzed. His blo od culture is not MRSA. He is on vancomycin. His chest x-ray shows stable findings with a left-sided chest tube in place. One apical cap. IMPRESSION: 1. Status post decortication. 2. Encephalopathy. 3. Renal failure. 4. Non-MRSA Staph sepsis. PLAN: I would consider discontinuing his vancomycin. We will consider switching him over to maybe c eftriaxone and Rocephin.
--- NOTE | 2017-09-01 09:14 | RAD ---
SINGLE VIEW OF THE CHEST: Comparison: 08-31-17 History: Post op thoracotomy. FINDINGS: Single view of the chest shows an enlarged but stable cardiomediastinal silhouette. Patient is status post sternotomy. The left sided chest tubes are unchanged in position. There is still a small left a pical pneumothorax. A left pleural effusion may also be present. IMPRESSION: Stable exam. POS: [facility]
[2017-09-01 09:40] LABS: Anion Gap 16 mmol/L (10-20); BUN (Urea Nitrogen) 55 mg/dL (8.4-25.7); Calc. Creatinine Clearance 11 mL/min (70-130); Calcium 9.2 mg/dL (7.8-10.44); Carbon Dioxide 24 mmol/L (23-31); Chloride 95 mmol/L (98-107); Estimated GFR-MDRD 9; Potassium 4.9 mmol/L (3.5-5.1); Sodium 130 mmol/L (136-145); Vancomycin, Trough 20.1 ug/mL
[2017-09-01 09:48] LABS: Glucose 41 mg/dL (80-115)
[2017-09-01] MEDS: Sevelamer Carbonate 800 MG TAB PO SCH ×3 (11:47→17:44)
[2017-09-01] MEDS: Aspirin 81 mg Enteric Coated Tablet PO SCH (12:23)
[2017-09-01] MEDS: Metoprolol Tartrate 50 MG TAB PO SCH ×2 (12:23→21:45)
[2017-09-01] MEDS: Fish Oil 1,000 MG CAP PO SCH (12:23)
[2017-09-01] MEDS: Cinacalcet HCl 30 MG TAB PO SCH (12:23)
[2017-09-01] MEDS: Prenatal Vitamin 1 TAB PO SCH (12:23)
[2017-09-01] MEDS: Vancomycin HCl 1 GM in Premix Bag 1 BAG IVPB SCH (12:24)
[2017-09-01] MEDS: Epoetin (ESRD) 20,000 UNITS/ML SC SCH (14:57)
[2017-09-01] MEDS: Atorvastatin Calcium 20 MG TAB PO SCH (21:44)
[2017-09-01] MEDS: Lisinopril 2.5 MG TAB PO SCH (21:44)
--- NOTE | 2017-09-02 08:05 | RAD ---
SINGLE VIEW OF THE CHEST: COMPARISON: 09/01/17. HISTORY: Status post thoracotomy. FINDINGS: A single view of the chest shows an enlarged cardiomediastinal silhouette. The patient is status po st sternotomy. Let-sided chest tubes are again seen. There is a small left apical pneumothorax whic h is stable. IMPRESSION: Stable exam. POS: [facility]
[2017-09-02] MEDS: Aspirin 81 mg Enteric Coated Tablet PO SCH (09:11)
[2017-09-02] MEDS: Sevelamer Carbonate 800 MG TAB PO SCH ×3 (09:12→17:04)
[2017-09-02] MEDS: Cinacalcet HCl 30 MG TAB PO SCH (09:12)
[2017-09-02] MEDS: Prenatal Vitamin 1 TAB PO SCH (09:12)
[2017-09-02] MEDS: Fish Oil 1,000 MG CAP PO SCH (09:13)
[2017-09-02] MEDS: Metoprolol Tartrate 50 MG TAB PO SCH ×2 (09:14→20:20)
[2017-09-02] MEDS: cefTRIAXone\\ROCEPHIN 2 GM in Sodium Chloride 0.9% 100 ML IVPB SCH (16:55)
[2017-09-02] MEDS: Atorvastatin Calcium 20 MG TAB PO SCH (20:20)
[2017-09-02] MEDS: Lisinopril 2.5 MG TAB PO SCH (20:20)
--- NOTE | 2017-09-03 00:41 | PRG ---
DATE OF SERVICE: 09/02/2017 SUBJECTIVE: This morning, he is better. He is less confused. PHYSICAL EXAMINATION: VITAL SIGNS: Blood pressure 119/59, sats 100% on 2 liters, temperature 99. CHEST: Decreased breath sounds, no wheezing. CARDIAC: Normal S1, S2, no gallops. IMAGING DATA: X-ray shows left-sided chest tube. LABORATORY DATA: Staph aureus culture with decortication FOR A left-sided trapped lung. IMP NOT MRSA CAN CHANGE ANTIBIOTICS . PLAN: Antibiotic as prescribed. PT and supportive care. He can probably be transferred out of the [facility]. MICHELLE
--- NOTE | 2017-09-03 08:28 | PRG ---
DATE OF SERVICE: 09/03/2017 This morning the patient is awake, alert, responsive. X-ray shows pleural thickening, apical cap. PHYSICAL EXAMINATION: VITAL SIGNS: Sats 99% on room air. Temperature 98, blood pressure __120\64 CHEST: Chest revealed decreased breath sounds without any wheezing. CARDIAC: Normal S1-S2. No gallops. ABDOMEN: Soft. No mass. IMPRESSION: 1. Staph sepsis, not methicillin-resistant Staphylococcus aureus. Switched over to ceftriaxone a total of 2 weeks of antibiotic should be more than adequate. 2. Status post decortication. 3. Metabolic encephalopathy. PLAN: Can be transferred out of the [facility] to a monitored bed. I will follow. OSCARD
--- NOTE | 2017-09-03 08:31 | RAD ---
CHEST 1 VIEW PORTABLE: HISTORY: A 62-year-old male with a history of status post thoracostomy. COMPARISON: 09/02/17. FINDINGS: Three left chest tubes in place with persistent pleural and parenchymal opacity changes in the left c hest. Multiple right-sided vascular stents. Postop midline sternotomy. Increased linear and inters titial markings in the right chest more prominent than on the prior study, possibly related to less i nspiratory effort on this study. IMPRESSION: Overall stable chest. Less inspiratory effort with increased markings in the right chest. Continue short-term followup. POS: [facility]
[2017-09-03 08:35] LABS: Vancomycin, Trough 23.8 ug/mL
[2017-09-03] MEDS: Prenatal Vitamin 1 TAB PO SCH (08:37)
[2017-09-03] MEDS: Cinacalcet HCl 30 MG TAB PO SCH (08:37)
[2017-09-03] MEDS: Sevelamer Carbonate 800 MG TAB PO SCH ×3 (08:37→16:39)
[2017-09-03] MEDS: Metoprolol Tartrate 50 MG TAB PO SCH ×2 (08:38→20:54)
[2017-09-03] MEDS: Aspirin 81 mg Enteric Coated Tablet PO SCH (08:38)
[2017-09-03] MEDS: Fish Oil 1,000 MG CAP PO SCH (08:38)
[2017-09-03] MEDS: cefTRIAXone\\ROCEPHIN 2 GM in Sodium Chloride 0.9% 100 ML IVPB SCH (16:39)
[2017-09-03] MEDS: Lisinopril 2.5 MG TAB PO SCH (20:53)
[2017-09-03] MEDS: Atorvastatin Calcium 20 MG TAB PO SCH (20:53)
--- NOTE | 2017-09-04 08:09 | RAD ---
AP VIEW OF THE CHEST: INDICATION: Status post thoracotomy. FINDINGS: The left-sided thoracostomy tubes are stable. Cardiomegaly with pulmonary vascular congestion remain . The pleural density overlying the left lung is stable. Midline sternotomy change is stable. Intr avascular graft is again noted involving the right subclavian region and right axillary region. Osse ous structures are unchanged. IMPRESSION: Stable exam. POS: [facility]
[2017-09-04] MEDS: Cinacalcet HCl 30 MG TAB PO SCH (09:02)
[2017-09-04] MEDS: Sevelamer Carbonate 800 MG TAB PO SCH ×3 (09:02→17:27)
[2017-09-04] MEDS: Fish Oil 1,000 MG CAP PO SCH (09:02)
[2017-09-04] MEDS: Aspirin 81 mg Enteric Coated Tablet PO SCH (09:02)
[2017-09-04] MEDS: Prenatal Vitamin 1 TAB PO SCH (09:03)
[2017-09-04] MEDS: Metoprolol Tartrate 50 MG TAB PO SCH ×2 (09:03→21:42)
--- NOTE | 2017-09-04 15:51 | PRG ---
DATE OF SERVICE: 09/04/2017 SERVICE: Pulmonary Medicine. INTERVAL HISTORY: The patient is doing fine from a respiratory standpoint. He denies any current ch est pain, nausea, vomiting, fevers or chills. Otherwise, there has been no interval change to his co ndition. He is not eating very much food. He has some chest discomfort whenever he takes a deep kisha ath or coughs. He continues to have persistent output from the left thoracostomy drains. In the las t 8 hours, he had 150 from one drain and 100 from the other. PHYSICAL EXAMINATION: VITAL SIGNS: Afebrile, pulse 91, blood pressure 107/56, respirations 19, saturation 99% on room air. GENERAL: The patient is awake, alert, no apparent distress. LUNGS: Excellent air entry on the right. There is a slightly decreased air entry on the left with r honchi. No wheezing or crackles are appreciated. HEART: Normal rate, regular. ABDOMEN: Soft, nontender and nondistended. Bowel sounds are positive. MUSCULOSKELETAL: No cyanosis or clubbing. There is no pitting in the bilateral lower extremities. NEUROLOGIC: Grossly nonfocal. LABORATORY DATA: Staph aureus is growing out of the central line on 08/29/2017. On the , blood cultures x2 are unremarkable. Staph aureus growing in previous blood cultures x2, and urine culture. ASSESSMENT: 1. Severe sepsis. 2. Empyema secondary to Staphylococcus aureus. 3. Bacteremia secondary to Staphylococcus aureus. 4. Urinary tract infection secondary to Staphylococcus aureus. IMAGING DATA: Chest x-ray demonstrates stable exam with two left-sided thoracostomy drains. Cardiom egaly is likely present on this AP film. ASSESSMENT AND PLAN: Now that the patient has cleared his inflammatory profile, I will check an echo cardiogram to make certain he had not heart. Pulmonary or Critical Care will continue to follo w along and patient will remain in this location for the time being.
[2017-09-04] MEDS: cefTRIAXone\\ROCEPHIN 2 GM in Sodium Chloride 0.9% 100 ML IVPB SCH (17:23)
[2017-09-04] MEDS: Lisinopril 2.5 MG TAB PO SCH (20:42)
[2017-09-04] MEDS: Atorvastatin Calcium 20 MG TAB PO SCH (21:42)
[2017-09-05] MEDS: Fish Oil 1,000 MG CAP PO SCH (08:34)
[2017-09-05] MEDS: Aspirin 81 mg Enteric Coated Tablet PO SCH (08:34)
[2017-09-05] MEDS: Sevelamer Carbonate 800 MG TAB PO SCH ×3 (08:34→17:56)
[2017-09-05] MEDS: Metoprolol Tartrate 50 MG TAB PO SCH ×2 (08:35→21:02)
[2017-09-05] MEDS: Prenatal Vitamin 1 TAB PO SCH (08:35)
[2017-09-05] MEDS: Cinacalcet HCl 30 MG TAB PO SCH (08:35)
--- NOTE | 2017-09-05 08:37 | RAD ---
AP VIEW OF THE CHEST: INDICATION: History of thoracotomy. IMPRESSION: Left-sided pleural parenchymal opacities and thoracostomy tubes are unchanged. No pneumothorax is ev ident. Chronic lung changes of the right lung are similar. Cardiomegaly persists. POS: [facility]
--- NOTE | 2017-09-05 14:25 | PRG ---
DATE OF SERVICE: 09/05/2017 SERVICE: Pulmonary Medicine. INTERVAL HISTORY: The patient did fine overnight. There are no significant events. Otherwise, he i s in his usual state of health. He denies any current chest discomfort, nausea, vomiting, fevers or chills. PHYSICAL EXAMINATION: VITAL SIGNS: Afebrile, pulse 82, blood pressure 97/47, respirations 29, saturation 100% on room air. GENERAL: The patient is awake, alert, no apparent distress. LUNGS: Excellent air entry. There is no prolonged expiratory phase or wheezing present. HEART: Normal rate, regular. ABDOMEN: Soft, nontender, nondistended. Bowel sounds are positive. MUSCULOSKELETAL: No cyanosis or clubbing. There is no pitting in the bilateral lower extremities. NEUROLOGIC: Grossly nonfocal. LABORATORY DATA: WBC 8.4, hemoglobin 9.2, platelets 236,000. Neutrophil count is 66%. Band count i s 22%. Staph aureus is growing and blood cultures x2, femoral line and urine culture. Repeat blood culture from the is unremarkable to date. IMAGING DATA: Chest x-ray demonstrates no interval change. There is 3 left-sided thoracostomy drain s in good position. There are chronic lung changes on the right. ASSESSMENT: 1. Severe sepsis. 2. Empyema secondary to Staphylococcus aureus. 3. Bacteremia secondary to Staphylococcus aureus. 4. Urinary tract infection secondary to Staphylococcus aureus. DISCUSSION AND PLAN: The patient is doing fine. We will transition him out of the IMCU to the medic al unit. Pulmonary or Critical Care will continue to follow along. Dr. Li will resume care in the morning.
--- NOTE | 2017-09-05 15:05 | CON ---
DATE OF CONSULTATION: 09/05/2017 REASON FOR CONSULTATION: Bacteremia. HISTORY OF PRESENT ILLNESS: A 62-year-old with a history of type 2 diabetes mellitus, hypertension, and end-stage renal disease for 9 years, on hemodialysis through an AV fistula, who has had coronary artery disease, had a bypass graft surgery I think in 2016 here in the hospital and has developed recurrent left-sided pleural effusion, which was identified does having complication of a fibrothorax eventually. Cultures and cytology did not reveal any malignancy or infection and the patient was admitted for elective thoracoscopy. Initially, the patient had thoracoscopy in 1999 and 08/24 of this year. Subsequently, underwent thoracotomy with decortication. At that time, the patient has a subclavian line inserted. This became infected and later on was removed. The femoral line was inserted in the left side. The patient has been managed still with antimicrobial therapy for the Staphylococcus bacteremia, which is a line associated bacteremia. The patient currently is in the IMCU. He is awake, alert, and oriented, although he does not know why he is so sick, did not know the sequence of events that led to his current state. No headaches, no visual symptoms. No neck pain, no back pain. No sore throat, odynophagia, dysphagia. Mild chest pain at the site of the thoracostomy tubes. No dyspnea or abdominal pain. Does not have urinary output. No joint symptoms. PAST MEDICAL HISTORY: Type 2 diabetes, hypertension, end-stage renal disease on hemodialysis for the past 9 years through an AV fistula, coronary artery disease with bypass graft surgery and angioplasty, left knee arthroscopy, AV fistula placement, thoracostomy and then thoracotomy with decortication in fibrothorax following chronic pleural effusion with a component of hemorrhage. ALLERGIES: PENICILLIN with rash. SOCIAL HISTORY: Lives in [place] with family members. Former smoker, no alcoholic beverage use. FAMILY HISTORY: Coronary artery disease and diabetes. CURRENT MEDICATIONS: Tylenol, Bolton, DuoNeb, Ecotrin, Lipitor, ceftriaxone, Procrit, Zestril, pantoprazole, Renvela. PHYSICAL EXAMINATION: VITAL SIGNS: T-max 99.7, currently 97.8, blood pressure 97/47, pulse 82, respirations 14-29, O2 sat 100%. SKIN: Shows the left chest tubes and the right groin catheter, triple lumen. Does not have a Alegria catheter. HEENT: Ocular movements conjugate. Sclerae white. Pupils are about 2 mm and reactive. Oral cavity with still quite a few teeth in place with marked decay and gum disease. NECK: Supple, no jugular venous distention. LUNGS: With diminished breath sounds in the left side. HEART: S1, S2, regular rate without murmurs. ABDOMEN: Soft, not distended or tender. No ascites. No bladder distention or organomegaly. EXTREMITIES: No joint inflammatory activity. Pulses are diminished in dorsalis pedis, not palpable in posterior tibialis. Popliteals are faintly palpable 1+. No edema. He is able to move extremities on command. NEUROLOGIC: He is awake, knows his name and knew he was in the hospital, could not tell me the date. LABORATORY DATA: White cell count is at 8.4, hemoglobin 9.2, MCV 96, platelets 235 with neutrophil percentage down to 66%, bands are up to 22%. Sodium 130, creatinine 6.05, pleural fluid with 1500 WBCs and 235,000 RBCs. Microbiology with Staph aureus from four sets of venous samples, two from the left femoral line when it had been inserted and two from peripheral site. The line that was the culprit in relationship to the bacteremia was not sampled at that time. This was the initial subclavian line that had been inserted. The pleural tissue showed coagulase negative Staph, likely contaminant of the sample, not a true pathogenic role. ASSESSMENT: 1. Type 2 diabetes with end-stage renal disease on hemodialysis through an AV fistula for many years. 2. Previous coronary artery bypass graft surgery. 3. Chronic pleural effusion with element of hemothorax. 4. Fibrothorax with entrapment, status post decortication. 5. Subclavian line, methicillin sensitive Staph aureus colonization without evidence of distant dissemination to other sites at this point in time. 6. Femoral line in situ. DISCUSSION: At this point, most likely the patient developed bacteremia from colonization of the previous subclavian central line, which has been removed, I believe on 08/29/2017. This line had been inserted on 08/26/2017 in preparation for the thoracotomy. The patient now has a femoral line and repeat blood cultures from 09/03/2017 are still no growth to date. At this point, we would recommend switching him to cefazolin given 3 grams after each dialytic therapy for probably around 2 weeks approximately since there is no evidence of persistence of bacteremia or distant dissemination/endocarditis. The administration of cefazolin would allow treatment after each dialysis without the requirement for IV access, which would be advantageous. I would strongly advise removal of the left femoral triple lumen catheter as soon as possible to avoid further complications. If evidence of distant dissemination with lung, bone/joint involvement develops then extension of treatment duration would have to be considered. MTDD
[2017-09-05] MEDS: cefTRIAXone\\ROCEPHIN 2 GM in Sodium Chloride 0.9% 100 ML IVPB SCH (17:56)
[2017-09-05] MEDS: Lisinopril 2.5 MG TAB PO SCH (21:01)
[2017-09-05] MEDS: Atorvastatin Calcium 20 MG TAB PO SCH (21:02)
--- NOTE | 2017-09-06 08:40 | RAD ---
AP VIEW OF THE CHEST: INDICATION: Status post thoracotomy. IMPRESSION: The examination has not appreciably changed from the comparison exam. Left side thoracostomy tubes a re stable. No pneumothorax is evident. POS: [facility]
[2017-09-06] MEDS: Sevelamer Carbonate 800 MG TAB PO SCH ×3 (10:18→16:40)
[2017-09-06] MEDS: Aspirin 81 mg Enteric Coated Tablet PO SCH (10:18)
[2017-09-06] MEDS: Prenatal Vitamin 1 TAB PO SCH (10:19)
[2017-09-06] MEDS: Fish Oil 1,000 MG CAP PO SCH (10:19)
[2017-09-06] MEDS: Cinacalcet HCl 30 MG TAB PO SCH (10:19)
[2017-09-06] MEDS: Metoprolol Tartrate 50 MG TAB PO SCH ×2 (10:19→22:57)
--- NOTE | 2017-09-06 11:32 | PRG ---
DATE OF SERVICE: 09/06/2017 SUBJECTIVE: Mr. Neil Raygoza is doing well. He is being dialyzed. OBJECTIVE: VITAL SIGNS: Sats are 90% on room air, respiration 16, temperature 98, blood pressure 127/63. CHEST: Reveal decreased breath sounds without any wheezing. CARDIAC: Normal S1, S2. No gallops. ABDOMEN: Soft, no masses. IMPRESSION: 1. Chronic renal failure on dialysis. 2. Staph sepsis, on ceftriaxone. Adjust for renal failure. PLAN: A total of 2 weeks of anti-staph coverage.\\ Home when CT is removed. MTDD
[2017-09-06] MEDS: cefTRIAXone\\ROCEPHIN 2 GM in Sodium Chloride 0.9% 100 ML IVPB SCH (16:40)
[2017-09-06] MEDS: Lisinopril 2.5 MG TAB PO SCH (22:55)
[2017-09-06] MEDS: Atorvastatin Calcium 20 MG TAB PO SCH (22:57)
[2017-09-07] MEDS: Aspirin 81 mg Enteric Coated Tablet PO SCH (08:54)
[2017-09-07] MEDS: Fish Oil 1,000 MG CAP PO SCH (08:54)
[2017-09-07] MEDS: Cinacalcet HCl 30 MG TAB PO SCH (08:55)
[2017-09-07] MEDS: Prenatal Vitamin 1 TAB PO SCH (08:55)
[2017-09-07] MEDS: Metoprolol Tartrate 50 MG TAB PO SCH ×2 (08:56→22:37)
--- NOTE | 2017-09-07 09:52 | RAD ---
CHEST ONE VIEW: History: Chest surgery. Follow up. Comparison: 09-06-17 FINDINGS: Cardiac silhouette remains magnified and enlarged. Pulmonary vasculature is upper limits of normal. M ediastinum is midline with post-operative changes and aortic calcification. Vascular stents and left thoracostomy tubes are unchanged in position. Pleural opacity along the periphery of the left hemitho rax and left rib fractures are unchanged. No significant residual pneumothorax. IMPRESSION: Stable post-traumatic appearance of the chest. POS: [facility]
[2017-09-07] MEDS: Sevelamer Carbonate 800 MG TAB PO SCH ×3 (09:53→18:13)
--- NOTE | 2017-09-07 12:38 | PRG ---
DATE OF SERVICE: 09/07/2017 SUBJECTIVE: This morning, he is better, no shortness of breath. PHYSICAL EXAMINATION: VITAL SIGNS: Sats are 97 on room air, respiration rate 18, temperature 98, blood pressure is 188/66. CHEST: Decreased breath sounds, no wheezing. CARDIAC: Normal S1, S2, no gallops. ABDOMEN: Soft. No masses. IMPRESSION: 1. Decortication left chest for trapped lung. 2. Chronic renal failure. X-ray shows pleural thickening. He is on antibiotics for a Staph sepsis, total of 2 weeks. PLAN: Continue PT, supportive care, home when the chest tube is removed. Pulmonary will follow at a distance. Please call if needed.
[2017-09-07] MEDS: cefTRIAXone\\ROCEPHIN 2 GM in Sodium Chloride 0.9% 100 ML IVPB SCH (18:12)
[2017-09-07] MEDS: Atorvastatin Calcium 20 MG TAB PO SCH (22:37)
[2017-09-07] MEDS: Lisinopril 2.5 MG TAB PO SCH (22:37)
[2017-09-08] MEDS: Prenatal Vitamin 1 TAB PO SCH (08:03)
[2017-09-08] MEDS: Metoprolol Tartrate 50 MG TAB PO SCH ×2 (08:03→22:04)
[2017-09-08] MEDS: Fish Oil 1,000 MG CAP PO SCH (08:03)
[2017-09-08] MEDS: Cinacalcet HCl 30 MG TAB PO SCH (08:03)
[2017-09-08] MEDS: Aspirin 81 mg Enteric Coated Tablet PO SCH (08:03)
--- NOTE | 2017-09-08 08:51 | RAD ---
PORTABLE CHEST: COMPARISON: Prior day's study. HISTORY: Post thoracotomy. FINDINGS: Heart size is enlarged with postop sternotomy change. Three left chest tubes remain in place. Pleur al changes in the left lung appear fairly stable. Right-sided stents are again noted. IMPRESSION: Stable exam. POS: [facility]
[2017-09-08 09:47] LABS: #Eosinphils 0.1 thou/uL (0.0-0.7); #Lymphocytes 0.6 thou/uL (1.20-3.40); #Monocytes 0.6 thou/uL (0.11-0.59); #Neutrophils 9.2 thou/uL (1.40-6.50); %Basophils 0.1 % (0.0-1.0); %Eosinophils 1.1 % (0.0-10.0); %Lymphocytes 5.2 % (21.0-51.0); %Monocytes 5.8 % (0.0-10.0); %Neutrophils 87.8 % (42.0-75.0); Hemoglobin 8.3 g/dL (14.0-18.0); Mean Corpuscular HGB CONC 33.1 g/dL (32.0-36.0); Mean Corpuscular Hemoglobin 31.6 pg (27.0-31.0); Mean Corpuscular Volume 95.5 fL (78.0-98.0); Platelet Count 380 thou/uL (130-400); RBC Distribution Width 13.2 % (11.5-14.5); Red Blood Cell (RBC) Count 2.62 mill/uL (4.70-6.10); White Blood Cell (WBC) Count 10.5 thou/uL (4.8-10.8)
[2017-09-08 10:04] LABS: Albumin 2.3 g/dL (3.4-4.8); Anion Gap 15 mmol/L (10-20); BUN (Urea Nitrogen) 42 mg/dL (8.4-25.7); BUN/Creatinine Ratio 8.68; Calc. Creatinine Clearance 13 mL/min (70-130); Calcium 9.3 mg/dL (7.8-10.44); Carbon Dioxide 25 mmol/L (23-31); Chloride 95 mmol/L (98-107); Estimated GFR-MDRD 12; Glucose 155 mg/dL (80-115); Phosphorus 3.3 mg/dL (2.3-4.7); Potassium 4.3 mmol/L (3.5-5.1); Sodium 131 mmol/L (136-145)
[2017-09-08] MEDS: cefTRIAXone\\ROCEPHIN 2 GM in Sodium Chloride 0.9% 100 ML IVPB SCH (11:32)
[2017-09-08] MEDS: Epoetin (ESRD) 20,000 UNITS/ML SC SCH (14:38)
[2017-09-08] MEDS: Sevelamer Carbonate 800 MG TAB PO SCH ×2 (14:41→19:46)
[2017-09-08] MEDS: Atorvastatin Calcium 20 MG TAB PO SCH (22:02)
[2017-09-08] MEDS: Lisinopril 2.5 MG TAB PO SCH (22:04)
[2017-09-09] MEDS: Acetaminophen 325 MG TAB PO PRN (07:00)
[2017-09-09] MEDS ORDERED: HYDROcodone/Acetaminophen 5/325 mg Tablet PO PRN (07:40)
[2017-09-09] MEDS: Cinacalcet HCl 30 MG TAB PO SCH (08:05)
[2017-09-09] MEDS: Prenatal Vitamin 1 TAB PO SCH (08:05)
[2017-09-09] MEDS: Sevelamer Carbonate 800 MG TAB PO SCH ×3 (08:05→18:45)
[2017-09-09] MEDS: HYDROcodone/Acetaminophen 5/325 mg Tablet PO PRN (08:06)
[2017-09-09] MEDS: Fish Oil 1,000 MG CAP PO SCH (08:07)
[2017-09-09] MEDS: Metoprolol Tartrate 50 MG TAB PO SCH ×2 (08:07→21:41)
[2017-09-09] MEDS: Aspirin 81 mg Enteric Coated Tablet PO SCH (08:07)
--- NOTE | 2017-09-09 08:34 | RAD ---
PORTABLE CHEST: COMPARISON: Prior day's exam. HISTORY: Post thoracotomy. FINDINGS: Three left chest tubes remain in place. The pleural changes in the left lung are stable. No interva l change since the prior exam. Heart size is enlarged. IMPRESSION: Stable chest. POS: [facility]
[2017-09-09] MEDS: Atorvastatin Calcium 20 MG TAB PO SCH (21:41)
[2017-09-09] MEDS: Lisinopril 2.5 MG TAB PO SCH (21:41)
[2017-09-10] MEDS: Sevelamer Carbonate 800 MG TAB PO SCH ×3 (09:00→17:57)
[2017-09-10 09:49] VITALS: BMI 19.5
[2017-09-10] MEDS: cefTRIAXone\\ROCEPHIN 2 GM in Sodium Chloride 0.9% 100 ML IVPB SCH (10:33)
--- NOTE | 2017-09-10 10:47 | RAD ---
UPRIGHT PORTABLE CHEST ONE VIEW: History: 62-year-old male with history of status thoracotomy. Comparison: 09-09-17 FINDINGS: Three left chest tubes are noted. Numerous left rib fractures with pleural and parenchymal opacity ch anges in the left chest which appear stable. Again noted is a probable very tiny left apical pneumot horax. Stable chronic changes in the right chest as well as cardiomegaly. IMPRESSION: Stable appearing chest. No new process. POS: [facility]
[2017-09-10] MEDS: Prenatal Vitamin 1 TAB PO SCH (13:52)
[2017-09-10] MEDS: Fish Oil 1,000 MG CAP PO SCH (13:52)
[2017-09-10] MEDS: Cinacalcet HCl 30 MG TAB PO SCH (13:52)
[2017-09-10] MEDS: Aspirin 81 mg Enteric Coated Tablet PO SCH (13:52)
[2017-09-10] MEDS: Metoprolol Tartrate 50 MG TAB PO SCH ×2 (13:56→21:43)
[2017-09-10] MEDS: Atorvastatin Calcium 20 MG TAB PO SCH (21:43)
[2017-09-10] MEDS: Lisinopril 2.5 MG TAB PO SCH (21:43)
[2017-09-11] MEDS: HYDROcodone/Acetaminophen 5/325 mg Tablet PO PRN (05:48)
--- NOTE | 2017-09-11 08:52 | RAD ---
PORTABLE AP CHEST X-RAY: 09/11/2017 HISTORY: Post chest tube removal. COMPARISON: 09/10/2017 FINDINGS: The left-sided thoracostomy tubes have been removed. Multiple left-sided rib fractures are again pre sent. The pleural based density extending along the lateral left chest, including the left lung apex and extending to the left lung base, is again seen and is similar to the prior study. There are als o stable mild parenchymal changes at the left lung base. The right lung remains clear. Median mehta otomy wires are again seen. Vascular stents again overly the right subclavian and right axillary reg ions. There is evidence of prior granulomatous disease. The right lung is otherwise clear. No pneu mothorax is appreciated. The cardiac silhouette is magnified by projection. There has been no other interval change. IMPRESSION: 1. Interval removal of left-sided thoracostomy tubes without evidence of an obvious pneumothorax. 2. Stable left-sided rib fractures with stable left pleural density, which may be related to pleural fluid. 3. Stable parenchymal changes in the left lung base, which could be related to residual atelectasis. POS: [facility]
[2017-09-11] MEDS: Aspirin 81 mg Enteric Coated Tablet PO SCH (09:30)
[2017-09-11] MEDS: Sevelamer Carbonate 800 MG TAB PO SCH ×2 (09:50→13:01)
[2017-09-11] MEDS: Prenatal Vitamin 1 TAB PO SCH (09:50)
[2017-09-11] MEDS: Cinacalcet HCl 30 MG TAB PO SCH (09:51)
[2017-09-11] MEDS: Metoprolol Tartrate 50 MG TAB PO SCH (09:51)
[2017-09-11] MEDS: Fish Oil 1,000 MG CAP PO SCH (09:51)
[2017-09-11 11:29] VITALS: BP 120/69; TEMP 97.8
--- NOTE | 2017-09-13 09:54 | DIS ---
DATE OF ADMISSION: 08/24/2017 DATE OF DISCHARGE: 09/11/2017 PRINCIPAL DIAGNOSIS: Left fibrothorax. SECONDARY DIAGNOSES: Staphylococcal sepsis, coronary artery disease, end-stage renal disease, hypert ension, diabetes mellitus. PROCEDURES PERFORMED: Left thoracoscopic pleural biopsy with combined mechanical and talc pleurodesi s 08/24/2017, muscle sparing left thoracotomy with total lung decortication 08/26/2017, left femoral venous central line placement 08/29/2017. HISTORY OF PRESENT ILLNESS AND HOSPITAL COURSE: The patient is a 62-year-old man about 2-3 years ago had undergone coronary artery bypass grafting. He had minimal left pleural effusion following that that seemed to clear, but then one over the last year or year and a half could see gradually increasi ng in size of left pleural effusion. He has recently become quite symptomatic and has had a large we ight loss. He was brought in for thoracoscopic pleural biopsy and pleurodesis anticipating that this pleural effusion that had recurred after thoracentesis represented malignancy. Clinically, it is mo re suggestive of a fibrothorax and frozen section examination of the biopsied tissue showed no eviden ce of malignancy. Overnight, he had a very large volume of pleural fluid drain and no further expans ion of his lung and he was returned to the operating room for open decortication. Two or three days later, he had some low-grade fever and some confusion. He was transferred to the Intensive Care Unit after having removed a subclavian line that had been rather difficult to place at his original opera tion drawing blood cultures and starting him on vancomycin. Upon transfer to the Intensive Care Unit , his remaining central line was removed and a new right femoral line was placed with blood cultures drawn from that as well. Peripheral blood cultures done originally and then one of the cultures draw n upon central line placement grew Staphylococcus aureus with multiple sensitivities. His mental sta tus cleared on antibiotics and it was opted to change his vancomycin to Rocephin dose with dialysis. He took about 2 weeks for his chest tube output to fall to the point that was feasible to remove the m. He was discharged the following day to complete his 2-week course of antibiotics on dialysis.
--- NOTE | 2017-09-14 16:33 | PQF ---
[employer] Intern Crystal Reports Winform RAFAEL Brady GEORG [id number] [facility] [id number] CLINICAL DOCUMENTATION CLARIFICATION FORM: POST DISCHARGE Addendum to original discharge summary date: ____ Late entry note date: __ Please check appropriate box(es) to clarify if the following diagnosis has been ruled in our ruled out: Possible line sepsis [ ] Ruled in diagnosis [ ] Continue to treat [ ] Resolved [ ] Ruled out diagnosis [ x ] Cannot rule out diagnosis [ ] Other diagnosis [ ] Unable to determine In addition, please specify: Present on Admission (POA): [ ] Yes [ x] No [ ] Unable to determine The following CLINICAL INDICATORS - SIGNS / SYMPTOMS are present in the medical record: RISKS: 09/05/[address] Soares ..."most likely the patient developed bacteremia from colonization of the previous subclavian central line" TREATMENTS: 08/29/17 OP note postoperative diagnosis listed as "possible line sepsis...He has developed some new confusion and fever and his existing lines are being removed" Left femoral venous central line placement with ultrasound Present Clinical Indicators - Signs / Symptoms / Labs Results and Location in Medical Record [ x ] Altered mental status/somnolence 08/30/[address] Sharif [x] hypotension BP 100/56 [x] positive blood culture Present Risk Factors Results and Location in Medical Record [ x ] Infection/Bacteremia 09/05/[address] Soares Please exercise your independent, professional judgment in responding to the clarification form. Clinical indicators are provided on the bottom of this form for your review. Thank you. (This form is maintained as a part of the permanent medical record) 2014 [employer]. All Rights Reserved Jessica [email or web address] [phone] [email or web address]
== END 2017-09-11 13:58 | disposition home or self-care (01) | DRG 163 ==
LOC: SURG A 07:12 → 2NO 14:58 → CCU 08-26 10:38 → 2NO 08-27 13:00 → CCU 08-29 16:32 → IMCU/EMU 08-30 16:18 → SJJU 09-05 16:17
PROVIDERS: ADMIT Thoracic Surgery (Cardiothoracic Vascular Surgery); ATTEND Thoracic Surgery (Cardiothoracic Vascular Surgery)
PROC: 0B5P4ZZ Destruction of Left Pleura, Percutaneous Endoscopic Approach (ICD-10-PCS; principal; 2017-08-24)
PROC: 0BBP4ZX Excision of Left Pleura, Percutaneous Endoscopic Approach, Diagnostic (ICD-10-PCS; 2017-08-24)
PROC: 3E0L4GC Introduction of Other Therapeutic Substance into Pleural Cavity, Percutaneous Endoscopic Approach (ICD-10-PCS; 2017-08-24)
PROC: 05HN33Z Insertion of Infusion Device into Left Internal Jugular Vein, Percutaneous Approach (ICD-10-PCS; 2017-08-24)
PROC: 0BNL0ZZ Release Left Lung, Open Approach (ICD-10-PCS; 2017-08-26)
PROC: 30233N1 Transfusion of Nonautologous Red Blood Cells into Peripheral Vein, Percutaneous Approach (ICD-10-PCS; 2017-08-26)
PROC: 5A1D70Z Performance of Urinary Filtration, Intermittent, Less than 6 Hours Per Day (ICD-10-PCS; 2017-08-27)
PROC: 06HN33Z Insertion of Infusion Device into Left Femoral Vein, Percutaneous Approach (ICD-10-PCS; 2017-08-29)
PROC: 05PYX3Z Removal of Infusion Device from Upper Vein, External Approach (ICD-10-PCS; 2017-08-29)
DX: J94.1 Fibrothorax (principal); N18.6 End stage renal disease; T80.211A Bloodstream infection due to central venous catheter, initial encounter; G93.40 Encephalopathy, unspecified; A41.01 Sepsis due to Methicillin susceptible Staphylococcus aureus; J86.9 Pyothorax without fistula; I12.0 Hypertensive chronic kidney disease with stage 5 chronic kidney disease or end stage renal disease; N39.0 Urinary tract infection, site not specified; T82.827 Fibrosis due to cardiac prosthetic devices, implants and grafts; J90 Pleural effusion, not elsewhere classified; I25.10 Atherosclerotic heart disease of native coronary artery without angina pectoris; E78.2 Mixed hyperlipidemia; I48.91 Unspecified atrial fibrillation; J44.9 Chronic obstructive pulmonary disease, unspecified; E11.22 Type 2 diabetes mellitus with diabetic chronic kidney disease; R63.4 Abnormal weight loss; Z72.0 Tobacco use; Z99.2 Dependence on renal dialysis; Z95.1 Presence of aortocoronary bypass graft; Z88.0 Allergy status to penicillin
CPT/HCPCS: 36415; 36416; 36430; 71045; 71046; 80048; 80069; 80202; 82150; 82805; 83615; 83986; 84157; 85007; 85025; 85027; 85060; 86850; 86900; 86901; 87040; 87070; 87077; 87086; 87102; 87116; 87149; 87186; 87205; 87206; 88112; 88305; 88307; 88331; 89051; 89060; 90935; 93005; 93010; 93306; 94640; A4216; A4306; G0257; G8978-GP-CK; G8978-GP-CM; G8979-GP-CJ; G8979-GP-CK; J0670; J0696; J1100; J1642; J1885; J2001; J2250; J2270; J2370; J2405; J2704; J2795; J3010; J3370; J7050; J7620; P9016; P9045; Q4081

== ENCOUNTER 2017-09-21 11:39 | Outpatient (CLI) | payer MEDICARE ==
--- NOTE | 2017-09-21 13:15 | RAD ---
CHEST TWO VIEWS: History: Chest pain. Comparison: 09-11-17 FINDINGS: Cardiac silhouette is enlarged. Pulmonary vasculature remains slightly engorged. Left pleural fluid a t the base and tracking along the lateral margin of the left chest wall, extending to the apex, is si milar to the previous exam. Mediastinum remains midline with aortic calcification and post-operative changes. Vascular stents over the right axillary and brachiocephalic vessels. No evidence of pneumoth orax. Left chest wall deformities are again demonstrated. IMPRESSION: Stable post-operative appearance of the chest, including left pleural fluid, partially loculated, whi ch is unchanged in appearance. POS: [facility]
== END 2017-09-21 11:40 | disposition home or self-care (01) ==
LOC: RAD 11:39
PROVIDERS: ATTEND Thoracic Surgery (Cardiothoracic Vascular Surgery)
DX: I25.111 Atherosclerotic heart disease of native coronary artery with angina pectoris with documented spasm (principal); J94.8 Other specified pleural conditions; Z98.890 Other specified postprocedural states
CPT/HCPCS: 71046

== ENCOUNTER 2017-12-16 14:19 | Outpatient (CLI) | payer MEDICARE ==
--- NOTE | 2017-12-16 15:22 | RAD ---
CHEST PA AND LATERAL: HISTORY: A 62-year-old male with a history of pleural effusion. COMPARISON: 09/21/2017. FINDINGS: Postop midline sternotomy with cardiomegaly and chronic-appearing left pleural thickening. Increased linear and interstitial markings in both lungs, somewhat more prominent on the left side. Multiple right-sided vascular stents. IMPRESSION: Chronic left-sided pleural thickening with cardiomegaly and stable-appearing increased linear and int erstitial markings bilaterally. No significant acute process. Atherosclerosis of the aorta with ect debby. POS: [facility]
== END 2017-12-16 14:20 | disposition home or self-care (01) ==
LOC: RAD 14:19
PROVIDERS: ATTEND Thoracic Surgery (Cardiothoracic Vascular Surgery)
DX: J90 Pleural effusion, not elsewhere classified (principal); I51.7 Cardiomegaly; J92.9 Pleural plaque without asbestos; I70.0 Atherosclerosis of aorta; I77.819 Aortic ectasia, unspecified site; R91.8 Other nonspecific abnormal finding of lung field
CPT/HCPCS: 71046

== ENCOUNTER 2017-12-22 14:41 | Emergency (ER) | payer MEDICARE ==
--- NOTE | 2017-12-22 15:51 | RAD ---
TWO VIEW CHEST: Indication: Chest pain. Comparison: 12-16-17 FINDINGS: The cardiac silhouette is prominent. There is pleural based density in the inferior left chest. Inter stitial opacity present bilaterally. Added density on the lateral pole surface of the left hemithorax is present. No additional significant interval change. IMPRESSION: 1. Evidence to indicate CHF, with associated interstitial edema/vascular congestion. 2. Persistent pleural based density of the left hemithorax. POS: [facility]
--- NOTE | 2017-12-31 17:49 | EKG ---
Test Reason : Blood Pressure : / mmHG Vent. Rate : 058 BPM Atrial Rate : 058 BPM P-R Int : 000 ms QRS Dur : 152 ms QT Int : 526 ms P-R-T Axes : 000 -20 -56 degrees QTc Int : 516 ms Sinus bradycardia Right bundle branch block T wave abnormality, consider inferolateral ischemia Abnormal ECG Confirmed by VICENTA MCDANIEL ([id number]), photograph editor MADDI DELANEY ([id number]) on 12/31/2017 5:48:52 PM Referred By: Confirmed By:VICENTA MCDANIEL
== END 2017-12-22 16:19 | disposition home or self-care (01) ==
LOC: ERS 14:41
DX: R07.9 Chest pain, unspecified (principal); R05 Cough; E11.22 Type 2 diabetes mellitus with diabetic chronic kidney disease; I12.0 Hypertensive chronic kidney disease with stage 5 chronic kidney disease or end stage renal disease; N18.6 End stage renal disease; F17.290 Nicotine dependence, other tobacco product, uncomplicated; Z79.82 Long term (current) use of aspirin; Z95.5 Presence of coronary angioplasty implant and graft
CPT/HCPCS: 71046; 93005; 99284

== ENCOUNTER 2018-04-15 10:39 | Emergency (ER) | payer MEDICARE ==
[2018-04-15 11:25] LABS: #Basophils 0.1 thou/uL (0.0-0.2); #Eosinphils 0.5 thou/uL (0.0-0.7); #Lymphocytes 0.4 thou/uL (1.20-3.40); #Monocytes 0.4 thou/uL (0.11-0.59); #Neutrophils 4.4 thou/uL (1.40-6.50); %Basophils 1.5 % (0.0-1.0); %Eosinophils 8.2 % (0.0-10.0); %Lymphocytes 6.7 % (21.0-51.0); %Monocytes 7.3 % (0.0-10.0); %Neutrophils 76.2 % (42.0-75.0); Hemoglobin 12.3 g/dL (14.0-18.0); Mean Corpuscular HGB CONC 30.4 g/dL (32.0-36.0); Mean Corpuscular Hemoglobin 29.9 pg (27.0-31.0); Mean Corpuscular Volume 98.1 fL (78.0-98.0); Mean Platelet Volume 6.9 fL (7.4-10.4); Platelet Count 130 thou/uL (130-400); RBC Distribution Width 17.2 % (11.5-14.5); Red Blood Cell (RBC) Count 4.12 mill/uL (4.70-6.10); White Blood Cell (WBC) Count 5.7 thou/uL (4.8-10.8)
[2018-04-15 11:37] LABS: ALT (SGPT) 8 U/L (8-55); AST (SGOT) 13 U/L (5-34); Alkaline Phosphatase 154 U/L (40-150); Anion Gap 15 mmol/L (10-20); BUN (Urea Nitrogen) 25 mg/dL (8.4-25.7); Bilirubin, Total 0.4 mg/dL (0.2-1.2); Calc. Creatinine Clearance 0 mL/min (70-130); Calcium 9.9 mg/dL (7.8-10.44); Carbon Dioxide 25 mmol/L (23-31); Chloride 101 mmol/L (98-107); Estimated GFR-MDRD 20; Glucose 119 mg/dL (80-115); Potassium 3.6 mmol/L (3.5-5.1); Sodium 137 mmol/L (136-145)
--- NOTE | 2018-04-15 12:19 | RAD ---
2 VIEW CHEST: Date: 04/15/18 HISTORY: Cough. COMPARISON: 12/22/17. FINDINGS: Cardiomegaly with postop sternotomy change. Abnormal opacity in the left apex is again noted. Strandi ng in the left upper lung is again noted. The left CP angle is obscured, suggesting chronic pleural r eaction or fluid, stable from the prior study. Mild vascular engorgement and interstitial prominence is also stable in appearance. There are vascular stents which appear to reside in the region of the r ight brachiocephalic and right axillary vein. IMPRESSION: Cardiomegaly. Mild vascular engorgement and chronic appearing lung and parenchymal changes which appe ar stable from the 12/22/17 exam. POS: DEMETRIUS
== END 2018-04-15 12:09 | disposition home or self-care (01) ==
LOC: SCSER 10:39
DX: J20.9 Acute bronchitis, unspecified (principal); I12.0 Hypertensive chronic kidney disease with stage 5 chronic kidney disease or end stage renal disease; E11.22 Type 2 diabetes mellitus with diabetic chronic kidney disease; N18.6 End stage renal disease; F17.290 Nicotine dependence, other tobacco product, uncomplicated; Z99.2 Dependence on renal dialysis
CPT/HCPCS: 36415; 71046; 80053; 85025; 93005